=== PATIENT | male | born 1950 | race Caucasian/White ===

== ENCOUNTER 2018-10-20 12:35 | Emergency (ER) | payer MEDICARE, BC, SELFPAY ==
[2018-10-20 12:41] VITALS: BP 123/80; PULSE 69; RESP 18; TEMP 36.9; O2SAT 97
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
[2018-10-20 14:10] LABS: Abs Immature Grans 0.01 k/cumm (0.0-0.09); Absolute Basophil Count 0.01 k/cumm (0.0-0.2); Absolute Eosinophil Count 0.04 k/cumm (0.0-0.7); Absolute Lymphocyte Count 0.99 k/cumm (1.2-3.4); Absolute Neutrophil Count 5.66 k/cumm (1.2-6.7); Basophils % 0.1; Eosinophils % 0.6; HCT 44.5 % (40.0-50.0); HGB 15.2 g/dL (13.5-17.5); Immature Grans % 0.1; Lymphocytes % 13.9; Mean Corp. HGB Concentration 34.2 g/dL (32.0-36.0); Mean Corpuscular Hemoglobin 29.5 pg (27.0-33.0); Mean Corpuscular Volume 86.2 fL (80-95); Mean Platelet Volume 9.5 fL (8.0-11.0); Monocytes % 5.6; Neutrophils % 79.7; Platelet Count 166 x1000/uL (130-400); RBC 5.16 m/cumm (4.50-6.00); RBC Distribution Width 13.1 % (11.8-14.1); White Blood Cell Count 7.11 k/cumm (4.4-10.8)
[2018-10-20] MEDS: Normal Saline 500 ML IV (14:11)
[2018-10-20 14:30] LABS: ALT 28 U/L (12-78); AST 21 U/L (15-37); Albumin 4.1 g/dL (3.4-5.0); Alkaline Phosphatase 90 U/L (46-116); Anion Gap 9.2 mmol/L (3-11); BUN 14 mg/dL (7-18); Bilirubin, Total 0.9 mg/dL (0.2-1.0); CO2 26.8 mmol/L (21.0-32.0); CREATININE 0.88 mg/dL (0.70-1.30); Calcium 9.2 mg/dL (8.5-10.1); Chloride 104 mmol/L (98-107); Glucose 106 mg/dL (70-100); Magnesium 2.2 mg/dL (1.8-2.4); Potassium 4.1 mmol/L (3.5-5.1); Sodium 140 mmol/L (136-145); Total Protein 6.9 g/dL (6.4-8.2); Troponin I < 0.05 ng/mL (0.00-0.06)
[2018-10-20 15:05] VITALS: BP 138/70; PULSE 55; RESP 16; O2SAT 98
[2018-10-20 17:30] VITALS: BP 134/89; PULSE 53; RESP 16; TEMP 36.9; O2SAT 99
[2018-10-20] MEDS: Acetaminophen 325 MG TAB (17:30)
== END 2018-10-20 17:33 | disposition short-term general hospital (02) ==
PROVIDERS: Emergency Provider Physician Assistant; PCP Emergency Medicine
DX: R55 Syncope and collapse (principal); R93.0 Abnormal findings on diagnostic imaging of skull and head, not elsewhere classified; R93.7 Abnormal findings on diagnostic imaging of other parts of musculoskeletal system; S01.511A Laceration without foreign body of lip, initial encounter; S00.81XA Abrasion of other part of head, initial encounter; V17.0XXA Pedal cycle driver injured in collision with fixed or stationary object in nontraffic accident, initial encounter
CPT/HCPCS: 36415; 80053; 93005; 96360; 99285; 70450; 70486; 71046; 72125; 73564; 83735; 84484; 85025; 93010

== ENCOUNTER 2018-10-31 00:52 | Outpatient (CLI) | payer MEDICARE, BC, SELFPAY ==
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
== END 2018-10-31 01:12 ==
PROVIDERS: PCP Emergency Medicine; Visit Provider Emergency Medicine
DX: R55 Syncope and collapse (principal); Z82.49 Family history of ischemic heart disease and other diseases of the circulatory system
CPT/HCPCS: 93016; 93018; 93017

== ENCOUNTER 2018-11-03 01:59 | Outpatient (CLI) | payer MEDICARE, BC, SELFPAY ==
--- NOTE | 2018-11-06 11:39 | HOLTER_ITS ---
HOLTER MONITOR DATE OF DICTATION November 06, 2018 INDICATION Syncope. ANALYSIS TIME 48 HOURS. Baseline rhythm is sinus rhythm. Average heart rate 64 beats per minute. Minimum heart rate 47 beats per minute. Max heart rate 154 beats per minute. Isolated PVCs. Less than 1% of total beats. No nonsustained ventricular tachycardia. Rare PACs. No atrial fibrillation or SVT. No significant pauses or significant aide arrhythmias. No diary entries noted. Overall sinus rhythm with isolated ectopy. Topher Chan M.D. VIKY/rico T 11/06/2018
== END 2018-11-03 02:19 ==
PROVIDERS: PCP Emergency Medicine; Visit Provider Emergency Medicine
DX: R55 Syncope and collapse (principal); I49.3 Ventricular premature depolarization; I49.1 Atrial premature depolarization
CPT/HCPCS: 93225

== ENCOUNTER 2018-11-05 15:00 | Outpatient (CLI) | payer MEDICARE, BC, SELFPAY | END 2018-11-05 15:20 | PROVIDERS: PCP Emergency Medicine; Visit Provider Emergency Medicine | DX: R55 Syncope and collapse (principal); I49.3 Ventricular premature depolarization; I49.1 Atrial premature depolarization | CPT/HCPCS: 93226 ==

== ENCOUNTER 2018-11-06 10:40 | Outpatient (CLI) | payer MEDICARE, BC, SELFPAY | END 2018-11-06 11:00 | PROVIDERS: PCP Emergency Medicine; Referring Provider Emergency Medicine; Visit Provider Internal Medicine Cardiovascular Disease | DX: R55 Syncope and collapse (principal); I49.3 Ventricular premature depolarization; I49.1 Atrial premature depolarization | CPT/HCPCS: 93227 ==

== ENCOUNTER → 2018-11-10 09:49 | Outpatient (BNVA) | payer MEDICARE, BC, SELFPAY | PROVIDERS: PCP Emergency Medicine; Referring Provider Emergency Medicine; Visit Provider Surgery | DX: K40.90 Unilateral inguinal hernia, without obstruction or gangrene, not specified as recurrent (principal); I47.2 Ventricular tachycardia | CPT/HCPCS: 99202; 99213 ==

== ENCOUNTER 2018-11-11 11:13 | Outpatient (CLI) | payer MEDICARE, BC, SELFPAY ==
[2018-11-11 12:15] LABS: HCT 41.5 % (40.0-50.0); Mean Corp. HGB Concentration 33.7 g/dL (32.0-36.0); Mean Corpuscular Hemoglobin 28.7 pg (27.0-33.0); Mean Platelet Volume 9.9 fL (8.0-11.0); Platelet Count 168 x1000/uL (130-400); RBC 4.88 m/cumm (4.50-6.00); White Blood Cell Count 3.96 k/cumm (4.4-10.8)
[2018-11-11 13:37] LABS: Anion Gap 10.2 mmol/L (3-11); BUN 18 mg/dL (7-18); CO2 25.8 mmol/L (21.0-32.0); CREATININE 0.84 mg/dL (0.70-1.30); Chloride 104 mmol/L (98-107); Sodium 140 mmol/L (136-145)
== END 2018-11-11 11:33 ==
PROVIDERS: PCP Emergency Medicine; Visit Provider Internal Medicine Interventional Cardiology
DX: I47.2 Ventricular tachycardia (principal); R55 Syncope and collapse
CPT/HCPCS: 36415; 80051; 84520; 85027; 82565

== ENCOUNTER 2019-10-21 03:00 | Outpatient (CLI) | payer MEDICARE, BC, SELFPAY ==
[2019-10-21 08:55] LABS: Calculated LDL 47 mg/dL (<100); Cholesterol 143 mg/dL (<200); HDL Cholesterol 89 mg/dL (40-60); Triglyceride 39 mg/dL (<150)
[2019-10-22 09:07] LABS: PSA, Screening 0.8 ng/mL (0.0-6.5)
== END 2019-10-21 03:20 ==
PROVIDERS: PCP Emergency Medicine; Visit Provider Emergency Medicine
DX: N40.1 Benign prostatic hyperplasia with lower urinary tract symptoms (principal); R35.1 Nocturia; Z12.5 Encounter for screening for malignant neoplasm of prostate; E78.5 Hyperlipidemia, unspecified
CPT/HCPCS: 36415; 80061; 84153

== ENCOUNTER 2020-08-23 09:53 | Outpatient (CLI) | payer MEDICARE, BC, SELFPAY ==
--- NOTE | 2020-08-23 09:30 | DI.RAD_ITS ---
Exam(s) XR SHOULDER RT COMPLETE 2+V EXAM: XR SHOULDER RT COMPLETE 2+V CLINICAL HISTORY: RIGHT SHOULDER PAIN TECHNIQUE: COMPARISON: CR LEFT SHOULDER COMPLETE from 03/27/2013 FINDINGS: Three views were obtained. The humerus appears mildly subluxed superiorly raising the possibility of rotator cuff thinning or tear. There may be slight narrowing of the cartilaginous joint space the g lenohumeral joint. There are mild marginal osteophytes of the glenoid and humerus. There is elevation of the distal end of the clavicle consistent with acromioclavicular separation. IMPRESSION: RADIATION DOSE DELIVERED: Total DLP
== END 2020-08-23 09:54 | disposition home or self-care (01) ==
LOC: DIORS 09:53
PROVIDERS: PCP Emergency Medicine; Referring Provider Emergency Medicine; Visit Provider Student in an Organized Health Care Education/Training Program
DX: M75.101 Unspecified rotator cuff tear or rupture of right shoulder, not specified as traumatic (principal); M12.811 Other specific arthropathies, not elsewhere classified, right shoulder; M25.511 Pain in right shoulder
CPT/HCPCS: 99203; 99214; 73030

== ENCOUNTER → 2020-09-15 01:00 | Outpatient (CLI) | payer MEDICARE, BC, SELFPAY ==
--- NOTE | 2020-09-15 09:50 | DI.MRI_ITS ---
Exam(s) MR UPPER JOINT RT WO EXAM: MR UPPER JOINT RT WO CLINICAL HISTORY: rt shoulder pain, rotator cuff arthropathy,m75.101,m12.811. TECHNIQUE: Multiplanar multisequence MRI was performed. COMPARISON: CR LEFT SHOULDER COMPLETE from 03/27/2013 CR XR CHEST 2V PA LATERAL from 10/20/2018 CR XR SHOULDER RT COMPLETE 2+V from 08/23/2020 CR XR SHOULDER RT COMPLETE 2+V from 08/23/2020 FINDINGS: The examination is limited due to patient motion artifact. BONES: There is no fracture or contusion pattern. JOINTS: There is elevation of the right clavicle relative to the acromion. This is new compared to t he chest x-ray from 10/20/2018. This is consistent with right AC joint separation. There is superior subluxation of the humeral head relative to the glenoid. This is secondary to the patient's large ro tator cuff tear. Please see below for further details. Degenerative changes are seen at the acromio clavicular joint. TENDONS: Supraspinatus: There is a full-thickness tear of the anterior supraspinatus tendon with retraction to the level of the glenohumeral joint. There is tendinosis of the fibers of the supraspinatus tendon. Infraspinatus: The infraspinatus tendon is intact. There is tendinosis present. Subscapularis: There is mild tendinosis of the subscapularis tendon. Teres Minor: Unremarkable. Biceps and [place]: There appears to be medial subluxation of the biceps tendon. There is thickening of the biceps tendon consistent with tendinosis. MUSCLES: There is mild fatty atrophy of the supraspinatus muscle. The subscapularis, infraspinatus a nd teres minor muscles show normal signal and size. GLENOID LABRUM: There is a small focus of hyperintense signal on the T2 weighted images in the anteri or superior labrum which may represent a tear. SOFT TISSUES: There is mild edema seen around the acromioclavicular joint. There is no evidence of a soft tissue mass. LIGAMENTS: Please see the above discussion on joints. OTHER: There is fluid seen in the subacromial bursa consistent with the patient's supraspinatus tendo n tear. IMPRESSION: 1. Full-thickness supraspinatus tendon tear with retraction to the level of the glenohumeral joint. Mild fatty atrophy of the supraspinatus muscle. 2. Right AC joint separation. 3. Question of an anterior superior labral tear. 4. Tendinosis and medial subluxation of the biceps tendon. 5. Tendinosis of the infraspinatus and subscapularis tendons. 6. Examination limited by patient motion. DATA REPOSITORY:
== END ==
PROVIDERS: PCP Emergency Medicine; Visit Provider Student in an Organized Health Care Education/Training Program
DX: M25.511 Pain in right shoulder (principal); M75.101 Unspecified rotator cuff tear or rupture of right shoulder, not specified as traumatic; M12.811 Other specific arthropathies, not elsewhere classified, right shoulder; S43.101A Unspecified dislocation of right acromioclavicular joint, initial encounter; M75.81 Other shoulder lesions, right shoulder
CPT/HCPCS: 73221

== ENCOUNTER → 2020-09-28 11:21 | Outpatient (BNVA) | payer MEDICARE, BC, SELFPAY | PROVIDERS: PCP Emergency Medicine; Referring Provider Emergency Medicine; Visit Provider Student in an Organized Health Care Education/Training Program | DX: M75.101 Unspecified rotator cuff tear or rupture of right shoulder, not specified as traumatic (principal); M12.811 Other specific arthropathies, not elsewhere classified, right shoulder; S46.211D Strain of muscle, fascia and tendon of other parts of biceps, right arm, subsequent encounter; X58.XXXD Exposure to other specified factors, subsequent encounter | CPT/HCPCS: 99213; 99214 ==

== ENCOUNTER → 2021-04-03 10:22 | Outpatient (BNVA) | payer MEDICARE, BC, SELFPAY | PROVIDERS: PCP Emergency Medicine; Referring Provider Emergency Medicine; Visit Provider Surgery | DX: K40.90 Unilateral inguinal hernia, without obstruction or gangrene, not specified as recurrent (principal) | CPT/HCPCS: 99202; 99214 ==

== ENCOUNTER 2021-05-01 01:15 | Outpatient (CLI) | payer MEDICARE, SELFPAY ==
[2021-05-01 10:57] LABS: Source Nasal/Nares
[2021-05-01 14:39] LABS: COVID-19 PCR Negative (Negative)
== END 2021-05-01 01:16 | disposition home or self-care (01) ==
LOC: LBO 01:15
PROVIDERS: PCP Emergency Medicine; Visit Provider Surgery
DX: Z20.822 Contact with and (suspected) exposure to COVID-19 (principal)
CPT/HCPCS: 87635

== ENCOUNTER 2021-05-02 06:18 | Day surgery (SDC) | payer MEDICARE, SELFPAY ==
--- NOTE | 2021-05-01 22:06 | ROE_ITS ---
Date of service: 05/02/21 Time of Service: 09:10 Operative Note Operative Note DATE OF PROCEDURE: 05/02/21 PRE-OP DIAGNOSIS: LIH POST-OP DIAGNOSIS: same PROCEDURE: indirect SURGEON: Maryellen Winters ROLLER LEVELER OPERATOR: Fabiana Parkinson ANESTHESIA TYPE: Local By Surgeon, General LMA/ETT and Primary Nerve Block Refer to Anesthesia Record ESTIMATED BLOOD LOSS: 5 PATHOLOGY: none sent COMPLICATIONS: None Patient was transported to: same day Procedure Description: INDICATIONS: The pt is here today for surgery regarding symptomatic left inguinal hernia that has failed outpatient conservative medical management and he is here today for repair. Informed consent was obtained, explaining risks and benefits of the procedure including but not limited to bleeding, infection, pneumonia, blood clots, chronic pain, chronic numbness, damage to testicle resulting in removal, recurrence of hernia, reaction to Mesh necessitating removal, and other unforetold complications, and complications of anesthesia-which were addressed by the HUMAN SERVICES INSTRUCTOR. The patient is marked in preOp prior to the procedure DESCRIPTION OF PROCEDURE: The pt is then brought to the operative room suite. Anesthesia was administered per the Department of Anesthesia. A nerve block was performed by anesthesia under US guidance. The patient was prepped and draped in the usual sterile fashion using ChloraPrep scrub solution. Pause for the cause was done. He did receive preop IV antibiotics, and 30 mL of .25% Marcaine w/ epinephrine was used for local anesthetization. A #12 blade was used to make an incision over the external ring. Electrocautery used to provide hemostasis and dissect down to the fascia. The fascia was pretty much obliterated and there was nothing to open. The cord is elevated. The nerve was not identified. There is no cord lipomas. Electro-cautery is used to provide hemostasis. A Jenelle drain was placed around the cord to assist in mobilization. The cord was explored. There was a hernia sac on the cord. There is no direct hernia pushing through the floor. The hernia sac is dissected off the cord using a combination of blunt dissection and electrocautery. Electrocautery is used to provide hemostasis. There are no contents within the hernia sac. The hernia sac is than inverted and returned to the abdominal cavity. A medium size plug is than inserted into the defect through the internal ring, and over sewn to tighten up the ring with 2-0 vicryl. Please see RN notes from Lot number of the Bard mesh patch/plug. The cord structures are still able to freely move through the ring itself. The patch was then placed onto the floor, and using 2-0 Vicryl, sewn into the pubic tubercle and the shelving portions of the inguinal ligament, in the standard Lichenstein fashion. The tails of the mesh are brought around the cord, sewn together w/ 2-0 Vicryl, and tucked under the external oblique. The wound was copiously irrigated. There was no bleeding noted. The drain was removed. All structures are returned to normal anatomical position. The nerve is not sewn into the mesh, nor caught up in any sutures. The external oblique is re- approximated using 2-0 vicryl in a running fashion. Deep tissue was approximated with 3-0 Vicryl in a running fashion, and skin was approximated with 4-0 Monocryl in a running subcuticular fashion. Skin glue and sterile d ressings are applied. The patient tolerated the procedure without complications to recovery in stable condition. MARYELLEN WINTERS, DO
--- NOTE | 2021-05-01 22:08 | W.PM.DSUDISC ---
Discharge Plan Disposition Patient Disposition: HOME Condition: Good Discharge Details Reason For Visit: hernia repair Attending Provider: Maryellen Machado Primary Care Provider: Dlalin Haywood Home Meds and New Rx's Prescriptions: No Action sildenafil 100 mg tablet 100 mg PO DAILY PRNRF: 0 Discharge Instructions Activity:: see above Remove Dressings/Wound Care:: 24 hours Shower/Bathe:: 24 hours Diet:: As Tolerated Discharge Orders Discharge Orders: Discharge Order (Routine); Ordered 05/01/21 Ordered By: Maryellen Machado DS: Diagnosis Discharge Diagnosis (1) Left inguinal hernia: Status: Acute (2) Hyperlipidemia: Status: Acute (3) Right rotator cuff tear arthropathy: Status: Acute (4) History of total bilateral knee replacement (TKR): Status: Chronic (5) BPH associated with nocturia: Status: Chronic
[2021-05-02] VITALS (7 sets, daily range): BP systolic 103–135; BP diastolic 57–83; PULSE 46–64; RESP 13–16; TEMP 36.1–36.5; O2SAT 98; BMI 26.0
--- NOTE | 2021-05-02 06:25 | W.ANESPRE ---
General Info Date of Service Date Performed: 05/02/21 Height: 5 ft 10 in Weight: 82.327 kg Body Mass Index (BMI): 26.0 Surgical Procedure: Operation Date: 05/02/21 07:40 Proposed Procedures Side Surgeon p Herniorrhaphy Inguinal w/ Mesh Left Maryellen Machado DO Meds Allergies and Home Medications Allergies Allergy/AdvReac Type Severity Reaction Status Date / Time No Known Drug Allergies Allergy Verified 05/02/21 07:12 Home Medication Medication Instructions Recorded sildenafil 100 mg tablet 100 mg PO DAILY PRN 08/26/20 Current Visit Medications: Current Medications Generic Name Dose Route Start Last Admin Trade Name Freq PRN Reason Stop Dose Admin Acetaminophen 1,000 mg 05/02/21 06:00 Acetaminophen 500 Mg Tab PO 05/31/21 23:59 PREOP VALENTIN Gabapentin 600 mg 05/02/21 06:00 Gabapentin 300 Mg Cap PO 05/31/21 23:59 PREOP VALENTIN Ringer's Solution 1,000 mls @ 80 mls/hr 05/02/21 06:00 IV 05/31/21 23:59 INFUSION VALENITN Cefazolin Sodium/Dextrose 2 gm in 50 mls @ 100 mls/hr 05/02/21 06:00 Ancef Duplex IVPB 05/31/21 23:59 PREOP VALENTIN Ondansetron HCl 4 mg/ Sodium 52 mls @ 200 mls/hr 05/01/21 22:04 Chloride IVPB Q6H PRN PRN IV Miscellaneous Supplies 1 each 05/02/21 06:00 Iv Access IV 05/31/21 23:59 DIRECTED VALENTIN Morphine Sulfate 2 mg 05/01/21 22:04 Morphine 4 Mg/Ml Syr IVP Q1H PRN PRN Sodium Chloride 0 ml 05/02/21 06:00 Normal Saline Flush 10 Ml Syr IV 05/31/21 23:59 PRN PRN Sodium Chloride 0 ml 05/02/21 06:00 Normal Saline 10 Ml Vial IJ 05/31/21 23:59 DIRECTED PRN Sterile Water 0 ml 05/02/21 06:00 Water,Injection,Sterile 10 Ml Vial IJ 05/31/21 23:59 DIRECTED PRN Tramadol HCl 50 mg 05/01/21 22:04 Tramadol 50 Mg Tab PO Q6H PRN PRN Pain PFSH Active Problems Active Problems: Problem Status Onset Code Rotator cuff tear, right M75.101 Traumatic rupture of right proximal biceps tendon S46.211A Right rotator cuff tear arthropathy M75.101, M12.811 Hyperlipidemia E78.5 Encounter for annual physical exam Z00.00 Left inguinal hernia K40.90 Syncope and collapse R55 History of arthroscopy of knee Z98.890 Concussion S06.0X9A History of total bilateral knee replacement (TKR) Z96.653 H/O varicose veins Z86.79 BPH associated with nocturia 06/01/14 N40.1, R35.1 Dermatitis L30.9 Hearing loss H91.90 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.11 Rotator cuff dysfunction 06/01/14 M67.919 Trigger finger, left ring finger 07/23/16 M65.342 Septic arthritis of knee, right M00.9 H/O surgical procedure Z98.89 Medical History Medical History Concussion Osteoarthritis Surgical History Surgical History Arthroplasty of knee 11/23/13 right Colonoscopy - MAC (08/21/16) 2004;neg H/O shoulder surgery History of appendectomy History of knee surgery Tobacco Smoking/Tobacco Use Status: Never Passive smoking exposure: Yes Second hand exposure: Yes Alcohol Alcohol Intake: current Alcohol intake frequency: a few times a week Alcohol type: beer Substance Use Substance use: Never Substance use type: does not use Vital Signs and Lab Results Vital Signs Most Recent Vital Signs in EMR: Temp Pulse Resp BP Pulse Ox 36.3 C L 57 L 16 132/83 98 05/02/21 06:21 05/02/21 06:21 05/02/21 06:21 05/02/21 06:21 05/02/21 06:21 Lab Results Blood Type / Crossmatch: No Data to Display Complete Blood Count: No Data to Display Complete Metabolic Panel: No Data to Display Liver Function Panel: No Data to Display Coagulation Panel: No Data to Display Cardiac Panel: No Data to Display Arterial Blood Gas: No Data to Display Venous Blood Gas: No Data to Display Pancreas Panel: No Data to Display Thyroid Panel: No Data to Display Infectious Disease: Coronavirus (COVID-19)(PCR) Negative (Negative) 05/01/21 08:24 05/01/21 Coronavirus 2019 Source Nasal/Nares 05/01/21 08:24 05/01/21 Blood Cultures: No Data to Display Toxicology Panel: No Data to Display Imaging and Studies Imaging and Studies Study information below may be from another EMR and interpreted by another provider. Please see original notes in EMR for more complete details. EKG Summary: 11/2018: sinus aide, minimal voltage criteria for LVH. Stress Test Summary: 2019: borderline study. treadmill score 8 - low risk. target HR was achieved. 14 mets. did have non-sustained VT in recovery. Echocardiogram Summary: 2019: LVEF 67%, mild-mod MR. Cardiac Catheterization Summary: 20 % mid and 20% distal LAD lesion, no intervention. MRI Summary: Cardiac 2019: normal LV fxn, possible myocarditis. Other Study Summary:: Holter 2019: sinus rhythm. no a fib/svt Zio Patch 2019: unremarkable. Anesthesia Assessment and Plan Anesthesia History Personal History: No History of Anesthesia Complications Family History: No Family History of Anesthesia Complications Exercise Tolerance Exercise Tolerance: Metabolic Equivalents<4 Cardiac & Pulmonary Exam Cardiac Exam: Normal S1/S2 Heart Sounds Pulmonary Exam: Clear Bilateral Breath Sounds Implantable Cardiac Device Does patient have a Pacemaker or an ICD?: No Airway Exam Known Difficult Airway: No Mallampati Class: 2 Mouth Opening: Normal (> 3cm) Thyromental Distance: Greater than 3 cm Neck Range of Motion: Full ROM Neck Circumference: Normal Teeth Condition: Normal Dentition ASA Classification ASA Score: ASA 2 Emergency Case?: No NPO Status NPO Status: NPO Clears >2 hours, Solids >8 hours Anesthesia Plan Resuscitation Status: Full Code Anesthesia Technique: General Anesthesia Airway Planned: LMA Pain Management: Surgeon and patient request nerve block Monitors Used: Standard Monitors Preoperative Comments:: 71 yo male for inguinal hernia repair. Sig PMHx: syncope (extensive workup, EP recommendations: no changes, f/u in 1 yr, if doing well can cancel), never smoker, occ EtOH.
[2021-05-02] MEDS: Lactated Ringers 1,000 ML 80 ML IV (06:37)
[2021-05-02] MEDS: Gabapentin 300 MG CAP 600 MG PO (06:37)
[2021-05-02] MEDS: Acetaminophen 500 MG TAB 1000 MG PO (06:37)
[2021-05-02] MEDS: ceFAZolin 2 GM/50 ML BAG IVPB (07:37)
--- NOTE | 2021-05-02 07:54 | W.ANESNERVE ---
Nerve Block Single Injection Procedure Date and Time Date Performed: 05/02/21 Procedure Start: 07:44 Location Where Procedure Performed Procedure Location: Operating Room Procedure Stop: 07:49 Reason Performed: Postoperative Analgesia Requesting Provider: Maryellen Machado Timeout Performed Timeout Performed: Yes Monitoring Used ECG, Blood Pressure, SpO2 and ETCO2 Sterility Sterility: Hand Hygiene, Surgical Cap, Surgical Mask, Sterile Gloves and Chlorhexidine Sedation Given During Procedure Sedation Given (Indicate Dose Given): No Sedation given Patient Mental Status Patient Mental Status: Performed under general anesthesia Nerve Block 1st Nerve Block: Laterality: Left Block Type: TAP Unilateral Needle / Catheter Used: 100mm SonoPlex II Local Anesthetic Bolus (Indicate Dose Given): Bupivacaine 0.375% Dose:: 20 mL and Exparel Dose:: 10 mL Additives (Indicate Dose Given): None Ultrasound: Sterile probe cover and gel used Ultrasound Image Saved?: Yes Nerve Stimulator: Not Used Paresthesia: None Procedure Tolerated: No Complications Procedure Outcome: Successful Performed By: Sebas Don
[2021-05-02] MEDS: Bupivacaine 0.25% Pres-Free 30 ML VIAL (08:30)
[2021-05-02] MEDS: Bupivacaine LIPOSOME/PF 133 MG/10 ML VIAL IJ (08:52)
--- NOTE | 2021-05-02 09:51 | W.ANESPOSTOP ---
Postoperative Evaluation Date, Time and Location Date Performed: 05/02/21 Time Performed: 09:51 Patient Location: Day Surgery Unit Vital Signs Most Recent Imported Vital Signs: Most Recent Vital Signs Temp Pulse Resp BP Pulse Ox 36.5 C 58 L 16 135/74 98 05/02/21 09:30 05/02/21 09:30 05/02/21 09:30 05/02/21 09:30 05/02/21 09:30 Pain Score Most Recent Pain Score: Most Recent Pain Score Pain Level 0 05/02/21 09:30 Assessment Mental Status: Awake (Alert & Oriented to Patient Baseline) Airway and Respiratory Function: Patent airway with normal (patient baseline) respiratory exam Cardiovascular Function: Hemodynamically Stable Hydration Status: Adequately Hydrated Nausea & Vomiting: No Nausea or Vomiting Pain: Pt. Denies Any Pain Peripheral Nerve Block: Regional nerve block not resolved at time of post operative discharge
== END 2021-05-02 11:11 | disposition home or self-care (01) ==
LOC: SUR 06:18
PROVIDERS: PCP Emergency Medicine; Visit Provider Surgery
PROC: (CPT 49505; principal; 2021-05-02 07:30)
DX: K40.90 Unilateral inguinal hernia, without obstruction or gangrene, not specified as recurrent (principal); E78.5 Hyperlipidemia, unspecified; N40.1 Benign prostatic hyperplasia with lower urinary tract symptoms; R35.1 Nocturia
CPT/HCPCS: 49505; 76942; C1781; J0690; J1100; J1885; J2001; J2405; J2704

== ENCOUNTER → 2021-05-18 08:44 | Outpatient (BNVA) | payer MEDICARE, SELFPAY | PROVIDERS: PCP Family Medicine; Referring Provider Emergency Medicine; Visit Provider Surgery | DX: Z48.815 Encounter for surgical aftercare following surgery on the digestive system (principal) ==

== ENCOUNTER → 2021-12-26 12:20 | Outpatient (BNVA) | payer MEDICARE, SELFPAY | PROVIDERS: PCP Family Medicine; Referring Provider Family Medicine; Visit Provider Nurse Practitioner Adult Health | DX: G56.22 Lesion of ulnar nerve, left upper limb (principal); G56.03 Carpal tunnel syndrome, bilateral upper limbs | CPT/HCPCS: 95911; 99203; 99215 ==

== ENCOUNTER → 2022-02-22 09:35 | Outpatient (BNVA) | payer MEDICARE, SELFPAY | PROVIDERS: PCP Family Medicine; Referring Provider Family Medicine; Visit Provider Student in an Organized Health Care Education/Training Program | DX: G56.03 Carpal tunnel syndrome, bilateral upper limbs (principal) | CPT/HCPCS: 99213 ==

== ENCOUNTER → 2022-03-15 11:14 | Outpatient (BNVA) | payer MEDICARE, SELFPAY | PROVIDERS: PCP Family Medicine; Referring Provider Family Medicine; Visit Provider Physical Therapy Assistant | DX: L72.9 Follicular cyst of the skin and subcutaneous tissue, unspecified (principal) | CPT/HCPCS: 99213 ==

== ENCOUNTER 2022-03-21 06:10 | Day surgery (SDC) | payer MEDICARE, SELFPAY ==
[2022-03-21 06:29] VITALS: BP 144/72; PULSE 51; RESP 16; TEMP 36.3; O2SAT 96
[2022-03-21] MEDS: Lactated Ringers 1,000 ML 80 ML IV (06:58)
--- NOTE | 2022-03-21 06:59 | W.ANESPRE ---
General Info Date of Service Date Performed: 03/21/22 Height: 5 ft 11 in Weight: 83.3 kg Body Mass Index (BMI): 25.6 Surgical Procedure: Operation Date: 03/21/22 07:40 Proposed Procedure Side Surgeon p Wrist ECTR Left Anson Suazo MD Meds Allergies and Home Medications Allergies Allergy/AdvReac Type Severity Reaction Status Date / Time No Known Drug Allergies Allergy Verified 03/21/22 06:34 Home Medication Medication Instructions Recorded sildenafil 100 mg tablet 100 mg PO DAILY PRN sexual 09/12/21 activity #30 tabs acetaminophen 500 mg tablet 500 mg PO Q6H PRN PRN pain #60 tabs 03/21/22 hydrocodone 5 mg-acetaminophen 325 1 tab PO Q6H PRN pain #4 tabs 03/21/22 mg tablet ibuprofen 600 mg tablet 600 mg PO TID PRN pain #90 tabs 03/21/22 Current Visit Medications: Current Medications Generic Name Dose Route Start Last Admin Trade Name Freq PRN Reason Stop Dose Admin Ringer's Solution 1,000 mls @ 80 mls/hr 03/21/22 06:00 IV 04/19/22 23:59 INFUSION VALENTIN Cefazolin Sodium/Dextrose 2 gm in 50 mls @ 100 mls/hr 03/21/22 06:00 Ancef Duplex IVPB 03/21/22 16:00 PREOP VALENTIN IV Miscellaneous Supplies 1 each 03/21/22 06:00 Iv Access IV 04/19/22 23:59 DIRECTED VALENTIN Sodium Chloride 0 ml 03/21/22 06:00 Normal Saline Flush 10 Ml Syr IV 04/19/22 23:59 PRN PRN Sodium Chloride 0 ml 03/21/22 06:00 Normal Saline 10 Ml Vial IJ 04/19/22 23:59 DIRECTED PRN Sterile Water 0 ml 03/21/22 06:00 Water,Injection,Sterile 10 Ml Vial IJ 04/19/22 23:59 DIRECTED PRN PFSH Active Problems Active Problems: Problem Status Onset Code Septic arthritis of knee, right M00.9 H/O surgical procedure Z98.89 Trigger finger, left ring finger 07/23/16 M65.342 Rotator cuff dysfunction 06/01/14 M67.919 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.11 Hearing loss H91.90 Dermatitis L30.9 BPH associated with nocturia 06/01/14 N40.1, R35.1 H/O varicose veins Z86.79 History of total bilateral knee replacement (TKR) Z96.653 Concussion S06.0X9A History of arthroscopy of knee Z98.890 Syncope and collapse R55 Left inguinal hernia K40.90 Encounter for annual physical exam Z00.00 Hyperlipidemia E78.5 Right rotator cuff tear arthropathy M75.101, M12.811 Traumatic rupture of right proximal biceps tendon S46.211A Rotator cuff tear, right M75.101 Left carpal tunnel syndrome G56.02 BPH (benign prostatic hyperplasia) N40.0 Actinic keratoses L57.0 Bilateral carpal tunnel syndrome G56.03 Medical History Medical History Concussion Osteoarthritis Surgical History Surgical History Arthroplasty of knee 11/23/13 right, left Colonoscopy - MAC (08/21/16) 2004;neg H/O shoulder surgery History of appendectomy History of knee surgery History of left inguinal hernia repair (~05/02/21) Tobacco Smoking/Tobacco Use Status: Never Passive smoking exposure: Yes Second hand exposure: Yes Alcohol Alcohol Intake: current Alcohol intake frequency: a few times a week Alcohol type: beer Substance Use Substance use: Never Substance use type: does not use Vital Signs and Lab Results Vital Signs Most Recent Vital Signs in EMR: Most Recent Vital Signs Temp Pulse Resp BP Pulse Ox 36.3 C L 51 L 16 144/72 H 96 03/21/22 06:29 03/21/22 06:29 03/21/22 06:29 03/21/22 06:29 03/21/22 06:29 Lab Results Blood Type / Crossmatch: No Data to Display Complete Blood Count: No Data to Display Complete Metabolic Panel: No Data to Display Liver Function Panel: No Data to Display Coagulation Panel: No Data to Display Cardiac Panel: No Data to Display Arterial Blood Gas: No Data to Display Venous Blood Gas: No Data to Display Pancreas Panel: No Data to Display Thyroid Panel: No Data to Display Infectious Disease: No Data to Display Blood Cultures: No Data to Display Toxicology Panel: No Data to Display Imaging and Studies Imaging and Studies Study information below may be from another EMR and interpreted by another provider. Please see original notes in EMR for more complete details. EKG Summary: 11/2018: sinus aide, minimal voltage criteria for LVH. Stress Test Summary: 2019: borderline study. treadmill score 8 - low risk. target HR was achieved. 14 mets. did have non-sustained VT in recovery. Echocardiogram Summary: 2019: LVEF 67%, mild-mod MR. Cardiac Catheterization Summary: 20 % mid and 20% distal LAD lesion, no intervention. MRI Summary: Cardiac 2019: normal LV fxn, possible myocarditis. Other Study Summary:: Holter 2019: sinus rhythm. no a fib/svt Zio Patch 2019: unremarkable. Anesthesia Assessment and Plan Anesthesia History Personal History: No History of Anesthesia Complications Family History: No Family History of Anesthesia Complications Exercise Tolerance Exercise Tolerance: Metabolic Equivalents<4 Pertinent Negatives Pertinent Negatives: No Symptoms of GERD Cardiac & Pulmonary Exam Cardiac Exam: Normal S1/S2 Heart Sounds Pulmonary Exam: Clear Bilateral Breath Sounds Implantable Cardiac Device Does patient have a Pacemaker or an ICD?: No Airway Exam Known Difficult Airway: No Mallampati Class: 2 Mouth Opening: Normal (> 3cm) Thyromental Distance: Greater than 3 cm Neck Range of Motion: Full ROM Neck Circumference: Normal Teeth Condition: Normal Dentition ASA Classification ASA Score: ASA 2 Emergency Case?: No NPO Status NPO Status: NPO Clears >2 hours, Solids >8 hours Anesthesia Plan Resuscitation Status: Full Code Anesthesia Technique: General Anesthesia Airway Planned: Natural Airway Monitors Used: Standard Monitors Preoperative Comments:: Sig PMHx: syncope (extensive workup, EP recommendations: no changes, f/u in 1 yr, if doing well can cancel), never smoker, occ EtOH.
--- NOTE | 2022-03-21 07:15 | W.PREOPHP ---
Assessment and Plan Assessment and plan (1) Bilateral carpal tunnel syndrome: Status: Acute Assessment and plan: Brennon is a 72-year-old who has bilateral carpal tunnel syndrome. He is here today for the left side to be followed by the right side and another 1 week. I reviewed carpal tunnel surgery with him once again. I discussed the technical details of carpal tunnel release and that I perform an endoscopic release, but would make a larger, open, incision if necessary for visualization. I discussed the risks of the procedure to include, but not limited to, bleeding, infection, palmar pain, stiffness, damage to nerves, damage to vessels, damage to tendons, weakness, recurrence, and incomplete release. Given these risks, Brennon desires to proceed. History of Present Illness History of Present Illness Chief Complaint: Bilateral carpal tunnel syndrome Narrative: Brennon is a 72-year-old who has bilateral carpal tunnel syndrome, left worse than right. Please see the previous office note for complete detailed history. He is here today for the left carpal tunnel release to be followed by the right side in 1 week. He reports numbness over the median nerve distribution. He has failed other nonoperative options. He denies any new changes. He denies any health changes. He denies any sick contacts. He denies fevers or chills, cough, shortness of breath. Review of Systems All systems reviewed & are unremarkable except as noted in HPI and below PFSH All Active Problems Septic arthritis of knee, right (Chronic) H/O surgical procedure (Chronic) a. arthroscopic irrigation and debridement right knee 12/19/2013 b. arthroscopic partial medial meniscectomy 11/23/2013 Trigger finger, left ring finger (Chronic 07/23/16) Rotator cuff dysfunction (Chronic 06/01/14) bilateral. surgery left. 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 Neg holter Left inguinal hernia (Acute) Encounter for annual physical exam (Acute) Hyperlipidemia (Acute) Right rotator cuff tear arthropathy (Acute) Traumatic rupture of right proximal biceps tendon (Acute) Rotator cuff tear, right (Acute) Left carpal tunnel syndrome (Acute) BPH (benign prostatic hyperplasia) (Chronic) Actinic keratoses (Acute) Bilateral carpal tunnel syndrome (Acute) Medical History Concussion Osteoarthritis Surgical History Arthroplasty of knee 11/23/13 right, left Colonoscopy - MAC (08/21/16) 2004;neg H/O shoulder surgery History of appendectomy History of knee surgery History of left inguinal hernia repair (~05/02/21) Family History Mother , age 89 No problems noted. Father , age 79 Heart disease Myocardial infarction Sister No problems noted. Sister No problems noted. Brother Heart disease Brother Heart disease NEW VALVE Hyperlipidemia Maternal Grandfather No problems noted. Paternal Grandfather No problems noted. Maternal Grandmother No problems noted. Paternal Grandmother No problems noted. Son No problems noted. Daughter No problems noted. Social History Smoking/Tobacco Use Status: Never Second Hand Exposure: Yes Smoking risk assessment performed?: Yes Alcohol Intake: current Alcohol Intake frequency: a few times a week Alcohol type: beer Drug use: Never Substance use type: does not use Caregiver/Support person: No Household members: spouse Housing: house Communication Needs: None Pets and animals: No Sexually active: Yes Do you think of yourself as: straight/heterosexual Current gender identity: male What is your relationship status?: How often do you talk on the phone with friends or family?: once per week How often do you get together with friends or relatives?: three or more times per week How often do you attend sikh or congregational services?: decline to answer Do you belong to any clubs or organized social groups?: no Panel score (0-1 are the most socially isolated patients): 2 What type of physical activity do you participate in: bicycling and other Details: Skiing, XIP, paddling Duration: 60-90 minutes/day Frequency: 3-4 times per week Elyssa/Pentecostal: None Special elyssa needs: No Seatbelt use: always Helmet use: Yes Helmet use: always Drive intox or ride w/intox hire car driver: No Do you feel safe at home: Yes Do you feel safe in your relationship?: Yes Meds Allergies and Home Medications Allergies Allergy/AdvReac Type Severity Reaction Status Date / Time No Known Drug Allergies Allergy Verified 03/21/22 06:34 Home Medications Medication Instructions Recorded Confirmed Type sildenafil 100 mg tablet 100 mg PO DAILY PRN sexual 09/12/21 03/21/22 Rx activity #30 tabs Exam Const General: cooperative, healthy appearing, comfortable and no acute distress Resp Auscultation: clear to auscultation bilaterally Cardio Rate: regular rate Rhythm: regular rhythm Results Last Vital Signs Temp 36.3 C L 03/21/22 06:29 Pulse 51 L 03/21/22 06:29 Resp 16 03/21/22 06:29 BP 144/72 H 03/21/22 06:29 Pulse Ox 96 03/21/22 06:29
--- NOTE | 2022-03-21 07:19 | PDOC.DSDIS_ITS ---
Date of service: 03/21/22 Time of Service: 07:19 Discharge Plan Disposition Patient Disposition: HOME Condition: Good Condition: Good Discharge Details Attending Provider: Anson Suazo Primary Care Provider: Rosa Elena Holly Home Meds and New Rx's Prescriptions: New acetaminophen 500 mg tablet 500 mg PO Q6H PRN PRN (Reason: pain) Qty: 60 3RF hydrocodone-acetaminophen 5-325 mg tablet 1 tab PO Q6H PRN (Reason: pain) Qty: 4 0RF ibuprofen 600 mg tablet 600 mg PO TID PRN (Reason: pain) Qty: 90 3RF Continued sildenafil 100 mg tablet 100 mg PO DAILY PRN (Reason: sexual activity) Qty: 30 4RF Rx Instructions: administer 30 minutes to 4 hours before activity Discharge Instructions Stand Alone Forms: Gabriele Lux Tunnel Release Referrals: Anson Suazo MD [ [facility] STAFF PHYSICIAN] - Activity:: Elevate Remove Dressings/Wound Care:: 48 hours Shower/Bathe:: 48 hours Activity:: Activity as Tolerated Equipment/Supplies:: No Equipment Needed Diet:: As Tolerated DS: Diagnosis Discharge Diagnosis (1) Bilateral carpal tunnel syndrome: Status: Acute
[2022-03-21] MEDS: ceFAZolin 2 GM/50 ML BAG IVPB (07:23)
[2022-03-21 07:30] VITALS: BMI 25.6
[2022-03-21] MEDS: Lidocaine 1% Pres-Free W/EPI 1/200,000 10 ML VIAL (07:31)
[2022-03-21 07:54] VITALS: BP 108/59; PULSE 55; RESP 16; TEMP 35.7; O2SAT 97
--- NOTE | 2022-03-21 07:56 | W.PM.OP ---
Date of service: 03/21/22 Time of Service: 07:45 Operative Note Operative Note DATE OF PROCEDURE: 03/21/22 PRE-OP DIAGNOSIS: Left Carpal Tunnel Syndrome POST-OP DIAGNOSIS: same PROCEDURE: Left Endoscopic Carpal Tunnel Release SURGEON: Anson Suazo ANESTHESIA TYPE: General:No Airway Refer to Anesthesia Record ESTIMATED BLOOD LOSS: 0 PATHOLOGY: none sent TOURNIQUET TIME: 8 COMPLICATIONS: None Patient was transported to: same day Patient's condition: stable Indications: I have seen Brennon in clinic for symptoms of carpal tunnel syndrome. The numbness, tingling, and pain limited function. Clinical exam findings with nerve conduction tests confirmed the diagnosis of carpal tunnel syndrome. Nonoperative measures such as bracing, time, activity modifications had been tried but disability and pain persisted. I discussed carpal tunnel release with the patient. I reviewed the risks of the procedure to include, but not limited to, bleeding, infection, pain, stiffness, incomplete release, damage to nerves or vessels, persistent numbness, recurrence. Despite these risks, the patient elected to proceed. Findings: There was tightened carpal tunnel. There was significant synovitis and abundant tissue within the carpal tunnel. This was dilated and released successfully with the endoscopic with increased space within the tunnel. The antebrachial fascia was released proximally freeing the median nerve at the wrist. Procedure Description: Brennon was greeted in the preoperative holding area where the correct side was identified and marked. The consent was reviewed with the patient and signed. The history and physical was updated. All questions were answered. He was taken back to the operating room. The patient was placed into the supine position on the operating room table with the left arm on an arm board. A nonsterile tourniquet was placed high onto the arm. All bony prominences were well padded. Prophylactic antibiotics in the form of Cefazolin were administered. The left arm was then prepped with Chloraprep and draped in a standard fashion with stockinette and extremity drape. A timeout to confirm correct identity, side and site, procedure, allergies, anesthesia, and medical concerns was performed. The surgical site was marked in the volar wrist creases in line with the radial border of the fourth ray. This area was anesthetized with approximately 6cc of 1% Lidocaine. The limb was then exsanguinated with an Esmarch. The skin was incised with a 15 blade, approximately 1cm. The skin only was cut and the deeper tissue was dissected bluntly with a tenotomy scissor, avoiding passing nerve and venous structures. The fascia was penetrated and opened bluntly. A two-prong skin hook was placed under this proximal fascial edge. A series of hamate finders were used to identify and dilate the carpal tunnel. Synovial elevator was used to free synovial attachments to the underside of the transverse carpal ligament. My thumb was kept in the palm to kale the distal extent of the carpal tunnel and correctly position the hand. The Microaire endoscope was inserted without difficulty and without resistance. There was notable synovitis and abundant tissue within the carpal tunnel which required multiple passes of the elevator. There was also a tendency to pass within Guyon's canal, but I used the hamate as a reference for appropriate positioning. Then, excellent visualization showed horizontally running fibers of the transverse carpal ligament (TCL). The distal extent of the TCL was visualized and the end of the scope palpated with the thumb. The blade was elevated and withdrawn from distal to proximal. The TCL was split into two flaps. The endoscope was reinserted to confirm complete release and any remnant ligament was incised. The scope was withdrawn and the proximal aspect of the carpal tunnel was grossly inspected and appeared release with the median nerve visible. The antebrachial fascia at the level of the wrist was then freed from the overlying skin and then the underlying median nerve with blunt dissection. This was transected longitudinally for about 3cm proximal to the wrist incision. The wound was then irrigated with easy flow of irrigant distally and proximally. The incision was closed with a single 4-0 Nylon suture. The wound was dressed with Xeroform, Gauze, Kerlix and Tj. The tourniquet was deflated with the initial dressing and held with some pressure. Blood flow returned easily to all digits with capillary refill less than 2 seconds. The patient tolerated the procedure well and was returned to the Same Day Surgery area in a stable condition suffering no known complication.
[2022-03-21 08:29] VITALS: PULSE 54; RESP 16; TEMP 36.3; O2SAT 97
--- NOTE | 2022-03-21 08:40 | W.ANESPOSTOP ---
Postoperative Evaluation Date, Time and Location Date Performed: 03/21/22 Time Performed: 08:40 Patient Location: Day Surgery Unit Vital Signs Most Recent Imported Vital Signs: Most Recent Vital Signs Temp Pulse Resp BP Pulse Ox 36.3 C L 54 L 16 108/59 L 97 03/21/22 08:29 03/21/22 08:29 03/21/22 08:29 03/21/22 07:54 03/21/22 08:29 Pain Score Most Recent Pain Score: Most Recent Pain Score Pain Level 0 03/21/22 08:29 Assessment Mental Status: Awake (Alert & Oriented to Patient Baseline) Airway and Respiratory Function: Patent airway with normal (patient baseline) respiratory exam Cardiovascular Function: Hemodynamically Stable Hydration Status: Adequately Hydrated Nausea & Vomiting: No Nausea or Vomiting Pain: Pt. Denies Any Pain Peripheral Nerve Block: Patient did not receive a nerve block
== END 2022-03-21 08:44 | disposition home or self-care (01) ==
PROVIDERS: PCP Family Medicine; Visit Provider Student in an Organized Health Care Education/Training Program
PROC: 01N54ZZ Release Median Nerve, Percutaneous Endoscopic Approach (ICD-10-PCS; CPT 29848; principal; 2022-03-21 07:30)
DX: G56.03 Carpal tunnel syndrome, bilateral upper limbs (principal)
CPT/HCPCS: 29848; J0690; J1100; J2405

== ENCOUNTER 2022-03-28 06:05 | Day surgery (SDC) | payer MEDICARE, SELFPAY ==
[2022-03-28 06:31] VITALS: BP 143/96; PULSE 54; RESP 14; TEMP 36.5; O2SAT 97
--- NOTE | 2022-03-28 07:07 | ANES.PREOP_ITS ---
General Info Date of Service Date Performed: 03/28/22 Height: 5 ft 11 in Weight: 82.6 kg Body Mass Index (BMI): 25.4 Surgical Procedure: Operation Date: 03/28/22 07:40 Proposed Procedure Side Surgeon p Wrist ECTR Right Anson Suazo MD Actual Procedure Side Surgeon p Wrist ECTR Right Anson Suazo MD Meds Allergies and Home Medications Allergies Allergy/AdvReac Type Severity Reaction Status Date / Time No Known Drug Allergies Allergy Verified 03/28/22 06:25 Home Medication Medication Instructions Recorded sildenafil 100 mg tablet 100 mg PO DAILY PRN sexual 09/12/21 activity #30 tabs acetaminophen 500 mg tablet 500 mg PO Q6H PRN PRN pain #60 tabs 03/21/22 hydrocodone 5 mg-acetaminophen 325 1 tab PO Q6H PRN pain #4 tabs 03/21/22 mg tablet ibuprofen 600 mg tablet 600 mg PO TID PRN pain #90 tabs 03/21/22 Current Visit Medications: Current Medications Generic Name Dose Route Start Last Admin Trade Name Freq PRN Reason Stop Dose Admin Ringer's Solution 1,000 mls @ 80 mls/hr 03/28/22 06:00 IV 04/26/22 23:59 INFUSION VALENTIN Cefazolin Sodium/Dextrose 2 gm in 50 mls @ 100 mls/hr 03/28/22 06:00 Ancef Duplex IVPB 04/26/22 23:59 PREOP VALENTIN IV Miscellaneous Supplies 1 each 03/28/22 06:00 Iv Access IV 04/26/22 23:59 DIRECTED VALENTIN Sodium Chloride 0 ml 03/28/22 06:00 Normal Saline Flush 10 Ml Syr IV 04/26/22 23:59 PRN PRN Sodium Chloride 0 ml 03/28/22 06:00 Normal Saline 10 Ml Vial IJ 04/26/22 23:59 DIRECTED PRN Sterile Water 0 ml 03/28/22 06:00 Water,Injection,Sterile 10 Ml Vial IJ 04/26/22 23:59 DIRECTED PRN PFSH Active Problems Active Problems: Problem Status Onset Code Septic arthritis of knee, right M00.9 H/O surgical procedure Z98.89 Trigger finger, left ring finger 07/23/16 M65.342 Rotator cuff dysfunction 06/01/14 M67.919 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.11 Hearing loss H91.90 Dermatitis L30.9 BPH associated with nocturia 06/01/14 N40.1, R35.1 H/O varicose veins Z86.79 History of total bilateral knee replacement (TKR) Z96.653 Concussion S06.0X9A History of arthroscopy of knee Z98.890 Syncope and collapse R55 Left inguinal hernia K40.90 Encounter for annual physical exam Z00.00 Hyperlipidemia E78.5 Right rotator cuff tear arthropathy M75.101, M12.811 Traumatic rupture of right proximal biceps tendon S46.211A Rotator cuff tear, right M75.101 Left carpal tunnel syndrome G56.02 BPH (benign prostatic hyperplasia) N40.0 Actinic keratoses L57.0 Bilateral carpal tunnel syndrome G56.03 Medical History Medical History Concussion Osteoarthritis Surgical History Surgical History Arthroplasty of knee 11/23/13 right, left Colonoscopy - MAC (08/21/16) 2004;neg H/O shoulder surgery History of appendectomy History of carpal tunnel release History of knee surgery History of left inguinal hernia repair (~05/02/21) Tobacco Smoking/Tobacco Use Status: Never Passive smoking exposure: Yes Second hand exposure: Yes Alcohol Alcohol Intake: current Alcohol intake frequency: a few times a week Alcohol type: beer Substance Use Substance use: Never Substance use type: does not use Details: alcohol: t-7 Vital Signs and Lab Results Vital Signs Most Recent Vital Signs in EMR: Most Recent Vital Signs Temp Pulse Resp BP Pulse Ox 36.5 C 54 L 14 143/96 H 97 03/28/22 06:31 03/28/22 06:31 03/28/22 06:31 03/28/22 06:31 03/28/22 06:31 Lab Results Blood Type / Crossmatch: No Data to Display Complete Blood Count: No Data to Display Complete Metabolic Panel: No Data to Display Liver Function Panel: No Data to Display Coagulation Panel: No Data to Display Cardiac Panel: No Data to Display Arterial Blood Gas: No Data to Display Venous Blood Gas: No Data to Display Pancreas Panel: No Data to Display Thyroid Panel: No Data to Display Infectious Disease: No Data to Display Blood Cultures: No Data to Display Toxicology Panel: No Data to Display Imaging and Studies Imaging and Studies Study information below may be from another EMR and interpreted by another provider. Please see original notes in EMR for more complete details. EKG Summary: 11/2018: sinus aide, minimal voltage criteria for LVH. Stress Test Summary: 2019: borderline study. treadmill score 8 - low risk. target HR was achieved. 14 mets. did have non-sustained VT in recovery. Echocardiogram Summary: 2019: LVEF 67%, mild-mod MR. Cardiac Catheterization Summary: 20 % mid and 20% distal LAD lesion, no interve ntion. MRI Summary: Cardiac 2019: normal LV fxn, possible myocarditis. Other Study Summary:: Holter 2019: sinus rhythm. no a fib/svt Zio Patch 2019: unremarkable. Anesthesia Assessment and Plan Anesthesia History Personal History: No History of Anesthesia Complications Family History: No Family History of Anesthesia Complications Exercise Tolerance Exercise Tolerance: Metabolic Equivalents<4 Pertinent Negatives Pertinent Negatives: No Symptoms of GERD Cardiac & Pulmonary Exam Cardiac Exam: Normal S1/S2 Heart Sounds Pulmonary Exam: Clear Bilateral Breath Sounds Implantable Cardiac Device Does patient have a Pacemaker or an ICD?: No Airway Exam Known Difficult Airway: No Mallampati Class: 2 Mouth Opening: Normal (> 3cm) Thyromental Distance: Greater than 3 cm Neck Range of Motion: Full ROM Neck Circumference: Normal Teeth Condition: Normal Dentition ASA Classification ASA Score: ASA 2 Emergency Case?: No NPO Status NPO Status: NPO Clears >2 hours, Solids >8 hours Anesthesia Plan Resuscitation Status: Full Code Anesthesia Technique: General Anesthesia Airway Planned: Natural Airway Monitors Used: Standard Monitors
[2022-03-28 07:10] VITALS: BMI 25.4
[2022-03-28] MEDS: Lactated Ringers 1,000 ML 80 ML IV (07:10)
--- NOTE | 2022-03-28 07:24 | W.PM.DSUDISC ---
Date of service: 03/28/22 Time of Service: 07:24 Discharge Plan Disposition Patient Disposition: Home Condition: Good Discharge Details Reason For Visit: R ECTR Attending Provider: Anson Suazo Primary Care Provider: Rosa Elena Holly Home Meds and New Rx's Prescriptions: Continued sildenafil 100 mg tablet 100 mg PO DAILY PRN (Reason: sexual activity) Qty: 30 4RF Rx Instructions: administer 30 minutes to 4 hours before activity acetaminophen 500 mg tablet 500 mg PO Q6H PRN PRN (Reason: pain) Qty: 60 3RF hydrocodone-acetaminophen 5-325 mg tablet 1 tab PO Q6H PRN (Reason: pain) Qty: 4 0RF ibuprofen 600 mg tablet 600 mg PO TID PRN (Reason: pain) Qty: 90 3RF Discharge Instructions Stand Alone Forms: Gabriele Lux Tunnel Release Referrals: Anson Suazo MD [ [facility] STAFF PHYSICIAN] - Activity:: Activity as Tolerated Remove Dressings/Wound Care:: 48 hours Shower/Bathe:: 48 hours Diet:: As Tolerated Discharge Orders Discharge Orders: Discharge Order (Routine); Ordered 03/28/22 Ordered By: Tra Reyes
[2022-03-28] MEDS: ceFAZolin 2 GM/50 ML BAG IVPB (07:33)
[2022-03-28] MEDS: Acetaminophen 325 MG TAB 650 MG PO (07:43)
[2022-03-28] MEDS: Lidocaine 1% Pres-Free W/EPI 1/200,000 10 ML VIAL (07:46)
[2022-03-28 08:00] VITALS: BP 102/65; PULSE 52; RESP 16; TEMP 36.4; O2SAT 96
--- NOTE | 2022-03-28 08:14 | W.ANESPOSTOP ---
Postoperative Evaluation Date, Time and Location Date Performed: 03/28/22 Time Performed: :14 Patient Location: Day Surgery Unit Vital Signs Most Recent Imported Vital Signs: Most Recent Vital Signs Temp Pulse Resp BP Pulse Ox 36.4 C L 52 L 16 102/65 96 03/28/22 08:00 03/28/22 08:00 03/28/22 08:00 03/28/22 08:00 03/28/22 08:00 Pain Score Most Recent Pain Score: Most Recent Pain Score Pain Level 0 03/28/22 08:00 Assessment Mental Status: Awake (Alert & Oriented to Patient Baseline) Airway and Respiratory Function: Patent airway with normal (patient baseline) respiratory exam Cardiovascular Function: Hemodynamically Stable Hydration Status: Adequately Hydrated Nausea & Vomiting: No Nausea or Vomiting Pain: Pt. Denies Any Pain Peripheral Nerve Block: Patient did not receive a nerve block
[2022-03-28 08:31] VITALS: BP 111/67; PULSE 53; RESP 18; TEMP 36.5; O2SAT 96
--- NOTE | 2022-03-28 19:20 | W.PM.OP ---
Date of service: 03/28/22 Time of Service: 07:45 Operative Note Operative Note DATE OF PROCEDURE: 03/28/22 PRE-OP DIAGNOSIS: Right Carpal Tunnel Syndrome POST-OP DIAGNOSIS: same PROCEDURE: Right Endoscopic Carpal Tunnel Release SURGEON: Anson Suazo ANESTHESIA TYPE: General:No Airway Refer to Anesthesia Record ESTIMATED BLOOD LOSS: 0 PATHOLOGY: none sent TOURNIQUET TIME: 6 COMPLICATIONS: None Patient was transported to: same day Patient's condition: stable Indications: I have seen Gonzalez in clinic for symptoms of carpal tunnel syndrome. The numbness, tingling, and pain limited function. Clinical exam findings with nerve conduction tests confirmed the diagnosis of carpal tunnel syndrome. Nonoperative measures such as bracing, time, activity modifications had been tried but disability and pain persisted. He had a release of his left carpal tunnel done last week with excellent results. Once again, I reviewed the risks of the procedure to include, but not limited to, bleeding, infection, pain, stiffness, incomplete release, damage to nerves or vessels, persistent numbness, recurrence. Despite these risks, the patient elected to proceed. Findings: There was tightened carpal tunnel. This was dilated and released successfully with the endoscopic with increased space within the tunnel. The antebrachial fascia was released proximally freeing the median nerve at the wrist. Procedure Description: Brennon was greeted in the preoperative holding area where the correct side was identified and marked. The consent was reviewed with the patient and signed. The history and physical was updated. All questions were answered. He was taken back to the operating room. The patient was placed into the supine position on the operating room table with the right arm on an arm board. A nonsterile tourniquet was placed high onto the arm. All bony prominences were well padded. Prophylactic antibiotics in the form of Cefazolin were administered. The right arm was then prepped with Chloraprep and draped in a standard fashion with stockinette and extremity drape. A timeout to confirm correct identity, side and site, procedure, allergies, anesthesia, and medical concerns was performed. The surgical site was marked in the volar wrist creases in line with the radial border of the fourth ray. This area was anesthetized with approximately 6cc of 1% Lidocaine. The limb was then exsanguinated with an Esmarch. The skin was incised with a 15 blade, approximately 1cm. The skin only was cut and the deeper tissue was dissected bluntly with a tenotomy scissor, avoiding passing nerve and venous structures. The fascia was penetrated and opened bluntly. A two-prong skin hook was placed under this proximal fascial edge. A series of hamate finders were used to identify and dilate the carpal tunnel. Synovial elevator was used to free synovial attachments to the underside of the transverse carpal ligament. My thumb was kept in the palm to kale the distal extent of the carpal tunnel and correctly position the hand. The Microaire endoscope was inserted without difficulty and without resistance. Excellent visualization showed horizontally running fibers of the transverse carpal ligament (TCL). The distal extent of the TCL was visualized and the end of the scope palpated with the thumb. The blade was elevated and withdrawn from distal to proximal. The TCL was split into two flaps. The endoscope was reinserted to confirm complete release and any remnant ligament was incised. The scope was withdrawn and the proximal aspect of the carpal tunnel was grossly inspected and appeared release with the median nerve visible. The antebrachial fascia at the level of the wrist was then freed from the overlying skin and then the underlying median nerve with blunt dissection. This was transected longitudinally for about 3cm proximal to the wrist incision. The wound was then irrigated with easy flow of irrigant distally and proximally. The incision was closed with a single 4-0 Nylon suture. The wound was dressed with Xeroform, Gauze, Kerlix and Tj. The tourniquet was deflated with the initial dressing and held with some pressure. Blood flow returned easily to all digits with capillary refill less than 2 seconds. The patient tolerated the procedure well and was returned to the Same Day Surgery area in a stable condition suffering no known complication.
== END 2022-03-28 08:45 | disposition home or self-care (01) ==
PROVIDERS: PCP Family Medicine; Visit Provider Student in an Organized Health Care Education/Training Program
PROC: 01N54ZZ Release Median Nerve, Percutaneous Endoscopic Approach (ICD-10-PCS; CPT 29848; principal; 2022-03-28 07:30)
DX: G56.01 Carpal tunnel syndrome, right upper limb (principal); E78.5 Hyperlipidemia, unspecified
CPT/HCPCS: 29848; J0690; J1885; J2405

== ENCOUNTER → 2022-04-06 08:49 | Outpatient (BNVA) | payer MEDICARE, SELFPAY | PROVIDERS: PCP Family Medicine; Referring Provider Family Medicine; Visit Provider Physician Assistant | DX: Z47.89 Encounter for other orthopedic aftercare (principal); G56.03 Carpal tunnel syndrome, bilateral upper limbs ==

== ENCOUNTER → 2022-04-12 13:04 | Outpatient (BNVA) | payer MEDICARE, SELFPAY | PROVIDERS: PCP Family Medicine; Referring Provider Family Medicine; Visit Provider Physical Therapy Assistant | DX: L72.3 Sebaceous cyst (principal) | CPT/HCPCS: 99212 ==

== ENCOUNTER → 2022-06-28 10:41 | Outpatient (BNVA) | payer MEDICARE, SELFPAY | PROVIDERS: PCP Family Medicine; Referring Provider Family Medicine | DX: M65.331 Trigger finger, right middle finger (principal); M72.0 Palmar fascial fibromatosis [Dupuytren]; M18.11 Unilateral primary osteoarthritis of first carpometacarpal joint, right hand; M18.12 Unilateral primary osteoarthritis of first carpometacarpal joint, left hand | CPT/HCPCS: 20550; J1030 ==

== ENCOUNTER → 2023-02-25 11:01 | Outpatient (BNVA) | payer MEDICARE, SELFPAY | PROVIDERS: PCP Family Medicine; Referring Provider Family Medicine; Visit Provider Student in an Organized Health Care Education/Training Program | DX: M65.331 Trigger finger, right middle finger (principal); M72.0 Palmar fascial fibromatosis [Dupuytren] | CPT/HCPCS: 99213 ==

== ENCOUNTER 2023-03-05 10:00 | Day surgery (SDC) | payer MEDICARE, SELFPAY ==
--- NOTE | 2023-03-05 09:04 | W.PM.DSUDISC ---
Date of service: 03/05/23 Time of Service: 09:05 Discharge Plan Disposition Patient Disposition: Home Condition: Good Discharge Details Reason For Visit: Right middle finger trigger and Dupuytren's Attending Provider: Anson Suazo Primary Care Provider: Rosa Elena Holly Home Meds and New Rx's Prescriptions: Continued sildenafil 100 mg tablet 100 mg PO DAILY PRN (Reason: sexual activity) Qty: 30 4RF Rx Instructions: administer 30 minutes to 4 hours before activity acetaminophen 500 mg tablet 500 mg PO Q6H PRN PRN (Reason: pain) Qty: 60 3RF ibuprofen 600 mg tablet 600 mg PO TID PRN (Reason: pain) Qty: 90 3RF Discharge Instructions Stand Alone Forms: Gabriele Abebe Finger Release Referrals: Anson Suazo MD [ [facility] STAFF PHYSICIAN] - Activity:: Elevate Remove Dressings/Wound Care:: 48 hours Shower/Bathe:: 48 hours Diet:: As Tolerated Discharge Orders Discharge Orders: Discharge Order (Routine); Ordered 03/05/23 Ordered By: Maryellen Justice
[2023-03-05 10:18] VITALS: BP 113/76; PULSE 59; RESP 18; TEMP 36.3; O2SAT 97
[2023-03-05] MEDS: Sodium Bicarbonate 50 MEQ/50 ML VIAL (12:01)
[2023-03-05] MEDS: Lidocaine 1% Multi-Dose W/EPI 1/100,000 50 ML VIAL (12:01)
[2023-03-05 12:15] VITALS: BP 126/67; PULSE 62; RESP 18; TEMP 36.4; O2SAT 97
--- NOTE | 2023-03-05 12:49 | W.PM.OP ---
Date of service: 03/05/23 Time of Service: 12:00 Operative Note Operative Note DATE OF PROCEDURE: 03/05/23 PRE-OP DIAGNOSIS: Right Middle Finger Trigger Finger POST-OP DIAGNOSIS: same PROCEDURE: Trigger Finger Release - Right Middle Finger SURGEON: Anson Suazo ANESTHESIA TYPE: Local By Surgeon Refer to Anesthesia Record ESTIMATED BLOOD LOSS: 5 PATHOLOGY: none sent COMPLICATIONS: None Patient was transported to: same day Patient's condition: stable Indications: I have seen Brennon in clinic for symptoms of a trigger finger. The catching, clicking, locking, and pain limited function. The diagnosis of trigger finger was evident. The symptoms had not responded to conservative measures. I discussed trigger finger release with the patient. I reviewed the risks of the procedure to include, but not limited to, bleeding, infection, pain, stiffness, incomplete release, damage to nerves or vessels, continued catching, recurrence. Despite these risks, the patient elected to proceed. Findings: There was a tightened A1 jesika which was released. The flexor tendons were inspected and the patient was able to move the finger without any catching, clicking, or locking. There was notable synovitis around the tendons and thickened overlying fascia. Procedure Description: Brennon was greeted in the preoperative holding area where the correct side was identified and marked. The consent was reviewed with the patient and signed. All questions were answered. He was taken back to the operating room. The patient was placed into the supine position on the operating room table with the right arm on an arm board. All bony prominences were well padded. No prophylactic antibiotics were administered since this was a clean, elective hand surgical case. The right arm was then prepped with Chloraprep and draped in a standard fashion with stockinette and extremity drape. A timeout to confirm correct identity, side and site, procedure, allergies, anesthesia, and medical concerns was performed. The surgical site was marked as a Kayla type incision directly over the A1 jesika of the involved digit and extending slightly proximal where thickening of the fascia was palpated. This was confirmed with palpation during finger flexion. This area, overlying the metacarpal head, was then anesthetized with 1% Lidocaine with epinephrine and buffered with sodium bicarb. The patient tolerated this well and once the anesthetic had setup, the procedure began. A longitudinal incision was made through skin only, approximately 1cm. The deep tissues were dissected bluntly. Once the A1 jesika and flexor tendons were identified the soft tissue including neurovascular structures were retracted medially and laterally. There were no crossing structures over the A1 jesika. The proximal edge of the jesika was identified and the jesika was incised with tenotomy scissors. There was a release of the tendons once this was fully released. The tendons were then removed from the wound and inspected. Excess synovium was resected. The tendons were then returned and the patient was asked to move the finger into deep flexion and back to extension. There was no recreation of the pre-operative symptoms. The hand was then once more inspected for any A0 jesika or area of possible constriction. The wound was then irrigated and the skin was closed with 4-0 Nylon. This was dressed with gauze and a Conform dressing. The patient tolerated the procedure well and was returned to the Same Day Surgery area in a stable condition suffering no known complication.
== END 2023-03-05 12:34 | disposition home or self-care (01) ==
LOC: SUR 10:01
PROVIDERS: PCP Family Medicine; Visit Provider Student in an Organized Health Care Education/Training Program
PROC: (CPT 26055; principal; 2023-03-05 15:30)
DX: M65.331 Trigger finger, right middle finger (principal)
CPT/HCPCS: 26055

== ENCOUNTER → 2023-03-14 11:10 | Outpatient (BNVA) | payer MEDICARE, SELFPAY | PROVIDERS: PCP Family Medicine; Referring Provider Family Medicine | DX: Z47.89 Encounter for other orthopedic aftercare (principal); M65.331 Trigger finger, right middle finger ==

== ENCOUNTER 2023-11-18 10:34 | Outpatient (REF) | payer MEDICARE, SELFPAY ==
--- NOTE | 2023-11-18 10:15 | SKI_PTH ---
PATIENT: Brennon Taylor LOC: [facility] #:[id number] AGE/SX: 73/M ROOM: RE11/18/[address]: Rosa Elena Holly MD, DC : 1950 BED: DIS: 11/18/2023 SPEC #: [id number] RECD: 11/18/23 12:19 STATUS: DARY REQ #: [id number] MIRA: 11/18/23 10:[address]: Rosa Elena Holly DEPT: Surgical Specimen RECD BY: Tova Lu Tissues: 1 - SKIN BIOPSY(SHAVE/PUNCH) Procedures: SKIN LEVEL 4 Comments: [id number]
== END 2023-11-18 10:35 | disposition home or self-care (01) ==
LOC: LBN 10:34
PROVIDERS: PCP Family Medicine; Visit Provider Family Medicine
DX: L82.1 Other seborrheic keratosis (principal)
CPT/HCPCS: 88305

== ENCOUNTER → 2023-11-19 00:47 | Outpatient (CLI) | payer MEDICARE, SELFPAY ==
--- NOTE | 2023-11-19 14:34 | DI.RAD_ITS ---
Exam(s) XR SHOULDER LT COMPLETE 2+V EXAM: XR SHOULDER LT COMPLETE 2+V CLINICAL HISTORY: l shoulder pain,M25.512. TECHNIQUE: 2D digital imaging was performed. Three views. COMPARISON: MR MR UPPER JOINT RT WO from 09/15/2020 FINDINGS: BONES: No acute fracture is present. No bony destructive lesion is seen. Of prior resection of the d istal clavicle. Prominent spurring at the undersurface of the acromion and humeral head. Spurring a t the glenohumeral joint. JOINTS: No dislocation present. Humeral head abnormally positioned beneath the undersurface of the a cromion. Findings consistent with chronic rotator cuff tear. SOFT TISSUE: Normal. IMPRESSION: Postsurgical and degenerative changes. DATA REPOSITORY: RADIATION DOSE DELIVERED:
== END ==
PROVIDERS: PCP Family Medicine; Visit Provider Family Medicine
DX: M25.512 Pain in left shoulder (principal); M19.012 Primary osteoarthritis, left shoulder
CPT/HCPCS: 73030

== ENCOUNTER → 2023-12-04 08:20 | Outpatient (BNVA) | payer MEDICARE, SELFPAY | PROVIDERS: PCP Family Medicine; Referring Provider Family Medicine; Visit Provider Student in an Organized Health Care Education/Training Program | DX: M75.102 Unspecified rotator cuff tear or rupture of left shoulder, not specified as traumatic (principal); M19.012 Primary osteoarthritis, left shoulder | CPT/HCPCS: 20610; J1010 ==

== ENCOUNTER 2024-10-07 09:19 | Outpatient (CLI) | payer MEDICARE, SELFPAY ==
--- NOTE | 2024-10-07 08:30 | DI.RAD_ITS ---
Exam(s) XR SHOULDER RT COMPLETE 2+V EXAM: XR SHOULDER RT COMPLETE 2+V CLINICAL HISTORY: RIGHT SHOULDER PAIN. TECHNIQUE: 2D digital imaging was performed. Two views. COMPARISON: CR XR SHOULDER RT COMPLETE 2+V from 08/23/2020 FINDINGS: BONES: No acute fracture is present. No bony destructive lesion is seen. Degenerative spurring and subchondral cysts in the greater tuberosity. JOINTS: No dislocation present. No significant degenerative changes of the AC joint. Glenohumeral joint space is maintained. Mild periarticular spurring. The humeral head is again noted to be somewhat superiorly positioned which could indicate chronic rotator cuff tear. SOFT TISSUE: Normal. IMPRESSION: Mild degenerative changes and suggestion of chronic rotator cuff tear. DATA REPOSITORY: RADIATION DOSE DELIVERED:
== END 2024-10-07 09:20 | disposition home or self-care (01) ==
LOC: DIORS 09:19
PROVIDERS: PCP Family Medicine; Referring Provider Family Medicine; Visit Provider Student in an Organized Health Care Education/Training Program
DX: M75.101 Unspecified rotator cuff tear or rupture of right shoulder, not specified as traumatic (principal); M12.811 Other specific arthropathies, not elsewhere classified, right shoulder; S46.211A Strain of muscle, fascia and tendon of other parts of biceps, right arm, initial encounter; X58.XXXA Exposure to other specified factors, initial encounter
CPT/HCPCS: 99213; 73030

== ENCOUNTER 2024-10-14 02:13 | Outpatient (CLI) | payer MEDICARE, SELFPAY ==
--- NOTE | 2024-10-14 06:45 | DI.RAD_ITS ---
Exam(s) XR FOOT LT COMPLETE EXAM: XR FOOT LT COMPLETE CLINICAL HISTORY: Left foot pain,m79.672. TECHNIQUE: 2D digital imaging was performed. COMPARISON: No exams were available for comparison FINDINGS: 3 views No evidence of acute fracture nor diastasis of the Lisfranc joint. The great toe metatarsophalangeal joint appears unremarkable as do the other MTP joints and interphalangeal joints and tarsometatarsal joints. There are mild degenerative changes in the talonavicular joint. Most prominent finding here is heavy calcification within the distal Achilles tendon over a distance of 6 cm at and cephalad to the insertion site on the posterior calcaneus. This calcification measures over 1 cm thick. There is no inferior calcaneal spur. There is no calcification in the plantar fascia. IMPRESSION: There is prominent calcification in the distal 6 cm of the Achilles tendon. DATA REPOSITORY: RADIATION DOSE DELIVERED:
== END 2024-10-14 02:33 ==
PROVIDERS: PCP Family Medicine; Visit Provider Podiatrist
DX: M79.672 Pain in left foot (principal); M76.62 Achilles tendinitis, left leg; I87.2 Venous insufficiency (chronic) (peripheral)
CPT/HCPCS: 99214; 73630

== ENCOUNTER 2024-10-19 02:50 | Outpatient (CLI) | payer MEDICARE, SELFPAY ==
--- NOTE | 2024-10-19 07:30 | DI.CT_ITS ---
Exam(s) CT UPPER EXTREMITY RT WO EXAM: CT UPPER EXTREMITY RT WO CLINICAL HISTORY: SURGICAL PLANNING,rt rotator cuff arthropathy,traumatic rupture rt biceps t TECHNIQUE: Imaging Protocol: Axial computed tomography images with coronal and sagittal reformatted images were created and reviewed. CONTRAST MATERIAL: Intravenous: None COMPARISON: CR XR SHOULDER RT COMPLETE 2+V from 10/07/2024 FINDINGS: OSSEOUS: There is no evidence of fracture or dislocation the glenohumeral joint. There is small calcific density off the lateral aspect of the greater tuberosity the supraspinatus tendon consistent with calcific tendinitis. There also degenerative subarticular cysts in the greater tuberosity self. There are moderate degenerative changes in the glenohumeral joint including mild joint space narrowing and there is an osteophyte on the inferior articular surface of the humeral head. Also small calcific density immediately subjacent to the osseous glenoid which is possibly related to periosteal stripping. The orientation of the AC joint is somewhat un conventional in that the joint spaces horizontally orientated. Is typically vertically orientated. There few small calcifications in the periarticular region of the AC joint. Bone density is age-appropriate. No ominous osseous lesions. IMPRESSION: Osteoarthritic degenerative changes in the glenohumeral joint and AC joint. Soft tissue calcifications as described above. Degenerative subarticular cysts noted in the greater tuberosity. RADIATION DOSE DELIVERED: 146.21 mGy.cm Total DLP DATA REPOSITORY: All CT scans at this facility are submitted to the National Radiology Data Registry (NRDR) Dose Index Registry (DIR) with the [employer] (A[employer]). RADIATION OPTIMIZATION: All CT scans at this facility use at least one of these dose optimization techniques: automated exposure control; mA and/or kV adjustment per patient size (includes targeted exams where dose is matched to clinical indication); or iterative reconstruction.
== END 2024-10-19 03:10 ==
LOC: DI 02:50
PROVIDERS: PCP Family Medicine; Visit Provider Student in an Organized Health Care Education/Training Program
DX: M12.811 Other specific arthropathies, not elsewhere classified, right shoulder (principal)
CPT/HCPCS: 73200

== ENCOUNTER → 2024-10-21 13:15 | Outpatient (BNVA) | payer MEDICARE, SELFPAY | PROVIDERS: PCP Family Medicine; Referring Provider Family Medicine; Visit Provider Student in an Organized Health Care Education/Training Program | DX: M75.101 Unspecified rotator cuff tear or rupture of right shoulder, not specified as traumatic (principal); M12.811 Other specific arthropathies, not elsewhere classified, right shoulder; S46.211A Strain of muscle, fascia and tendon of other parts of biceps, right arm, initial encounter; X58.XXXA Exposure to other specified factors, initial encounter | CPT/HCPCS: 99214 ==

== ENCOUNTER 2024-11-05 05:59 | Day surgery (SDC) | payer MEDICARE, SELFPAY ==
[2024-11-05] VITALS (23 sets, daily range): BP systolic 101–151; BP diastolic 54–85; PULSE 46–71; RESP 15–22; TEMP 36.5–36.7; O2SAT 95–98; BMI 23.8
[2024-11-05] MEDS: Lactated Ringers 1,000 ML 30 ML IV (06:40)
--- NOTE | 2024-11-05 07:01 | ANES.PREOP_ITS ---
General Info Date of Service Date Performed: 11/05/24 Height: 5 ft 11 in Weight: 77.5 kg Body Mass Index (BMI): 23.8 Surgical Procedure: Operation Date: 11/05/24 07:40 Proposed Procedure Side Surgeon p Shoulder Reverse Total Arthroplasty Right Obie Zavaleta MD Meds Allergies and Home Medications Allergies Allergy/AdvReac Type Severity Reaction Status Date / Time No Known Drug Allergies Allergy none Verified 11/05/24 06:06 Home Medication ?Medication ?Instructions ?Recorded sildenafil 100 mg tablet 100 mg PO DAILY PRN sexual 0 09/12/21 activity #30 tabs acetaminophen 500 mg tablet 500 mg PO Q6H PRN PRN pain #60 tabs 03/21/22 ibuprofen 600 mg tablet 600 mg PO TID PRN pain #90 t abs 03/21/22 Current Visit Medications: Current Medications Generic Name Dose Route Start Last Admin Trade Name Freq PRN Reason Stop Dose Admin Ringer's Solution 1,000 mls @ 30 mls/hr 11/05/24 06:00 11/05/24 06:40 IV 11/05/24 23:59 30 mls/hr INFUSION VALENTIN Administration Cefazolin Sodium/Dextrose 2 gm in 50 mls @ 100 mls/hr 11/05/24 06:00 Ancef Duplex IVPB 11/05/24 23:59 PREOP VALENTIN Tranexamic Acid/Sodium Chloride 1,000 mg in 100 mls @ 600 mls/hr 11/05/24 06:00 IVPB 11/05/24 23:59 PREOP VALENTIN IV Miscellaneous Supplies 1 each 11/05/24 06:00 Iv Access IV 11/05/24 23:59 DIRECTED VALENTIN Sodium Chloride 0 ml 11/05/24 06:00 Normal Saline Flush 10 Ml Syr IV 11/05/24 23:59 PRN PRN Sodium Chloride 0 ml 11/05/24 06:00 Normal Saline 10 Ml Vial IJ 11/05/24 23:59 DIRECTED PRN Sterile Water 0 ml 11/05/24 06:00 Water,Injection,Sterile 10 Ml Vial IJ 11/05/24 23:59 DIRECTED PRN PFSH Active Problems Active Problems: Problem Status Onset Code Venous (peripheral) insufficiency Acute I87.2 Insertional tendinopathy of left Achilles tendon Acute M76.62 Hearing difficulty Acute H91.90 Left rotator cuff tear arthropathy Acute M75.102, M12.812 Arthritis of left glenohumeral joint Acute M19.012 Left shoulder pain Acute M25.512 Arthritis of carpometacarpal (CMC) joint of right thumb Acute M18.11 Arthritis of carpometacarpal (CMC) joint of left thumb Acute M18.12 Dupuytren's contracture of right hand Acute M72.0 Septic arthritis of knee, right Chronic M00.9 H/O surgical procedure Chronic Z98.89 Trigger finger, left ring finger Chronic 07/23/16 M65.342 Rotator cuff dysfunction Chronic 06/01/14 M67.919 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 Hearing loss Chronic H91.90 Dermatitis Chronic L30.9 BPH associated with nocturia Chronic 06/01/14 N40.1, R35.1 H/O varicose veins Chronic Z86.79 History of total bilateral knee replacement (TKR) Chronic Z96.653 Concussion Acute S06.0X9A History of arthroscopy of knee Acute Z98.890 Syncope and collapse Acute R55 Left inguinal hernia Acute K40.90 Encounter for annual physical exam Acute Z00.00 Hyperlipidemia Acute E78.5 Right rotator cuff tear arthropathy Acute M75.101, M12.811 Traumatic rupture of right proximal biceps tendon Acute S46.211A Rotator cuff tear, right Acute M75.101 Left carpal tunnel syndrome Acute G56.02 BPH (benign prostatic hyperplasia) Chronic N40.0 Actinic keratoses Acute L57.0 Bilateral carpal tunnel syndrome Acute G56.03 Medical History Medical History Concussion Osteoarthritis Surgical History Surgical History History of carpal tunnel release History of left inguinal hernia repair (~05/02/21) H/O shoulder surgery History of appendectomy History of knee surgery Colonoscopy - MAC (08/21/16) 2004;neg Arthroplasty of knee 11/23/13 right, left Tobacco Smoking/Tobacco Use Status: Never Passive smoking exposure: Yes Second hand exposure: Yes Alcohol Alcohol Intake: current Alcohol intake frequency: holidays/special occasions only Alcohol type: beer Substance Use Substance use: Never Substance use type: does not use Vital Signs and Lab Results Vital Signs Most Recent Vital Signs in EMR: Most Recent Vital Signs Temp Pulse Resp BP Pulse Ox 36.5 C 59 L 16 141/82 H 98 11/05/24 06:07 11/05/24 06:07 11/05/24 06:07 11/05/24 06:07 11/05/24 06:07 Imaging and Studies Imaging and Studies Study information below may be from another EMR and interpreted by another provider. Please see original notes in EMR for more complete details. EKG Summary: 11/2018: sinus aide, minimal voltage criteria for LVH. Stress Test Summary: 2019: borderline study. treadmill score 8 - low risk. target HR was achieved. 14 mets. did have non-sustained VT in recovery. Echocardiogram Summary: 2019: LVEF 67%, mild-mod MR. Cardiac Catheterization Summary: 20 % mid and 20% distal LAD lesion, no intervention. MRI Summary: Cardiac 2019: normal LV fxn, possible myocarditis. Other Study Summary:: Holter 2019: sinus rhythm. no a fib/svt Zio Patch 2019: unremarkable. Anesthesia Assessment and Plan Anesthesia History Personal History: No History of Anesthesia Complications Family History: No Family History of Anesthesia Complications Exercise Tolerance Exercise Tolerance: Metabolic Equivalents<4 Pertinent Negatives Pertinent Negatives: No Symptoms of GERD, No Major Cardiovascular Symptoms or Complaints, No Major Pulmonary Symptoms or Complaints and No History of CVA/TIA Cardiac & Pulmonary Exam Cardiac Exam: Normal S1/S2 Heart Sounds Pulmonary Exam: Clear Bilateral Breath Sounds Implantable Cardiac Device Does patient have a Pacemaker or an ICD?: No Airway Exam Known Difficult Airway: No Mallampati Class: 2 Mouth Opening: Normal (> 3cm) Thyromental Distance: Greater than 3 cm Neck Range of Motion: Full ROM Neck Circumference: Normal Teeth Condition: Normal Dentition ASA Classification ASA Score: ASA 2 Emergency Case?: No NPO Status NPO Status: NPO Clears >2 hours, Solids >8 hours Anesthesia Plan Resuscitation Status: Full Code Anesthesia Technique: General Anesthesia Airway Planned: Endotracheal Tube Pain Management: Surgeon and patient request nerve block Monitors Used: Standard Monitors
--- NOTE | 2024-11-05 07:08 | W.PM.DSUDISC ---
Date of service: 11/05/24 Discharge Plan Disposition Patient Disposition: Home Condition: Stable Discharge Details Attending Provider: Obie Zavaleta Primary Care Provider: Rosa Elena Holly Home Meds and New Rx's Prescriptions: New naproxen 250 mg tablet 250 mg PO BID PRN (Reason: Moderate pain) Qty: 25 0RF tramadol 50 mg tablet 50 mg PO TID PRNQty: 18 0RF Continued sildenafil 100 mg tablet 100 mg PO DAILY PRN (Reason: sexual activity) Qty: 30 4RF Rx Instructions: administer 30 minutes to 4 hours before activity acetaminophen 500 mg tablet 500 mg PO Q6H PRN PRN (Reason: pain) Qty: 60 3RF ibuprofen 600 mg tablet 600 mg PO TID PRN (Reason: pain) Qty: 90 3RF Discharge Instructions Additional Instructions: Surgery: Right reverse total shoulder arthroplasty (retentive liner) with biceps tenodesis 11/05/2024 Activity: Do not lift anything heavier than a coffee. You should keep your arm at your side in a relatively neutral position at all times except for gentle range of motion exercises, physical therapy, and essential activities. You should use the sling whenever you are out of the house. At home it is best to remove the sling and rest the arm on a pillow at your side or support the operative side with your other hand. A physical therapy prescription will be sent electronically to start in about 3 weeks. STANDARD Reverse TSA Protocol. Prescriptions: Naproxen 250 mg take 1 every 12 hours with a meal as needed for moderate pain Tramadol 50 mg take 1 every 8 hours as needed for severe pain You may use [id number] Tylenol (acetaminophen) as needed for mild pain. These pain medications may be taken all at once or in different combinations as needed. Also, recommend Colace (docusate) as a stool softener as surgery and pain medicine cause constipation. You may try [id number] diphenhydramine (Benadryl) 25-50 mg nightly as a sleep aid Dressings: Leave dressing in place until follow-up. Keep clean and dry at all times. No showers please. Follow-up: 10-[address] Zavaleta You may take off the leg compression stockings this evening at home. You may also leave them on a few days longer if you have a history of leg swelling or edema. Please call the office during business hours with any questions or concerns. Let us know right away if you develop any redness, drainage, fevers, chest pain, or trouble breathing. Do not drink alcohol or drive for at least 24 hours after anesthesia. Stand Alone Forms: Anesthesia Discharge Inst., Beba Argueta (DSU) Discharge Orders Discharge Orders: Discharge Order (Routine); Ordered 11/05/24 Ordered By: Job Akins DS: Diagnosis Discharge Diagnosis (1) Right rotator cuff tear arthropathy: Status: Acute
--- NOTE | 2024-11-05 07:22 | ROE_ITS ---
Operative Note Operative Note PRE-OP DIAGNOSIS: Right: 1. Rotator cuff arthropathy 2. Proximal biceps rupture PROCEDURE: Right: 1. Reverse total shoulder arthroplasty, CPT # 77314 2. Open biceps tenodesis, CPT # 77531 The assistant branch operations manager was medically required as this procedure involves retraction, protection of neurovascular structures, and manipulation of multiple instruments and implants at the same time, which cannot be done without a skilled assistant branch operations manager. SURGEON: Obie Zaavleta TALENT PARTNER: Job Akins ANESTHESIA TYPE: Local By Surgeon, General LMA/ETT and Primary Nerve Block Refer to Anesthesia Record ESTIMATED BLOOD LOSS: 150 COMPLICATIONS: None Patient was transported to: PACU Patient's condition: stable Implants: DePuy [employer] shoulder system Small modular baseplate with 35 mm central screw 40, 30, and 20 mm peripheral locking screws 40 mm +8 mm glenosphere Large standard length stem +0 mm humeral shell and +4 mm retentive liner Indications: See medical record for details Findings: Significant global bursitis. Proximal biceps rupture in the superior aspect of the bicipital groove. High-grade partial subscapularis tearing. Deficient supraspinatus and partial infraspinatus retracted chronic tearing. Procedure Description: In the operating room, general anesthesia was induced. The patient was positioned beachchair on the operating room table. All bony prominences were well-padded. Preoperative antibiotics were administered. The shoulder was prepped and draped in the usual sterile fashion for shoulder arthroplasty. The correct patient, procedure, and side of the procedure were all verified prior to incision. The deltopectoral approach was preinjected with 0.25% bupivacaine containing epinephrine and taken to the anterior shoulder. Care was taken to bluntly dissect the interval between the deltoid and pectoralis major muscles and to identify the cephalic vein within its fat stripe. The vein was preserved and mobilized laterally. Subdeltoid space and conjoined tendon were freed of adhesions. The long head of the biceps tendon was identified just lateral to the lesser tuberosity within the bicipital groove, but absent in the glenohumeral joint. The uppermost margin of the pectoralis major tendon was released from the proximal humerus. The long head of the biceps tendon was inspected below the level of the humeral cut and it was mainly to have given the chronic rupture, but mobile. In order to prevent additional retraction or dysfunction it was tenodesed in situ using SutureTape in a [id number] fashion securing it superior margin the pectoralis major tendon. The significant bursitis was debrided opening the joint.. A subscapularis tenotomy of the lower remnant while bringing the arm gradually into external rotation. Care was taken to avoid the axillary nerve by only working on the bone inferiorly and medially. Notable thickening and retracted tearing of the supraspinatus and infraspinatus were debrided to a more stable posterior superior margin. Appropriate coagulation was achieved especially interiorly. The anatomic neck was cut using an oscillating saw with the humeral head bone brought back table in case there was a need for future bone grafting. Attention was then turned to the glenoid and retractors were placed and a circumferential release performed removing soft tissue about the glenoid rim. Care was taken inferiorly to work on bone only between 5 and 7:00 o'clock and bluntly elevate tissues inferiorly. The glenoid was sized and guidepin inserted accounting for patient version and inclination. The guidepin was advanced just through the far cortex ensuring adequate central fixation length. The one step prep glenoid reamer was then used to prepare glenoid according to winchman/crane operator specifications. The baseplate was impacted onto the glenoid surface. The central compression screw was placed. The central screw truckload checker was used to confirm the central screw was fully seated. The locking guide was then used to drill and place appropriately lengthed inferior, anterior, and posterior screws. The [id number]-[id number] reamer was used to achieve adequate peripheral reaming. The glenosphere was applied with the loan specialist and impacted to engage the Edwards taper. It was then locked with appropriate countersinking of the setscrew. The glenosphere had good fit, appropriate positioning, and no soft tissue or bony impingement. The proximal humerus was delivered from the wound with adduction and external rotation. The humerus was sized and pin placed. Reaming and blazing were done over the pin. The stem pin punch was used through the blazer to confirm distal path and complete preparation with some additional bone removed posteriorly and laterally to accommodate for canal and stem geometry. The final stem was impacted into place. Trialing was started with a +0 mm shell and liner. The shoulder was reduced and taken through range of motion and demonstrated excellent stability and good tension on the soft tissues. Trial components were built up to +4 mm liner, but this had too much tension on the deltoid and conjoined tendon. Trial shell and liner were removed. The final shell was impacted onto the humeral stem, trialing confirmed +0 mm liner, and final liner was clicked into place. Retentive liner was chosen due to deficient rotator cuff. The shoulder was reduced and range of motion, stability, and tension confirmed. The shoulder was copiously irrigated with Betadine and normal saline. Vancomycin powder was distributed deeply about the shoulder and through subcutaneous tissues. The deltopectoral interval was approximated with 2-0 Monocryl burying the cephalic vein, which was diminutive due to significant branching superficially which had to be coagulated. Subcutaneous tissue was irrigated then closed using 2-0 Monocryl in a buried interrupted fashion. Skin was closed using 3-0 Monocryl in a buried subcuticular fashion. Skin glue was applied to the incision. A silver impregnated bandage was placed over the incision. The extremity was placed into a shoulder immobilizer. The patient awoke from anesthesia without complication and was taken to the recovery room in stable condition. Date of Procedure: 11/05/24
--- NOTE | 2024-11-05 07:26 | W.ANESNERVE ---
Nerve Block Single Injection Procedure Date and Time Date Performed: 11/05/24 Procedure Start: 07:14 Location Where Procedure Performed Procedure Location: Day Surgery Unit Reason Performed: Postoperative Analgesia Requesting Provider: Obie Zavaleta Timeout Performed Timeout Performed: Yes Monitoring Used ECG, Blood Pressure, SpO2 and See EMR for corresponding vital signs Sterility Sterility: Hand Hygiene, Surgical Cap, Surgical Mask, Sterile Gloves and Chlorhexidine Sedation Given During Procedure Sedation Given (Indicate Dose Given): Versed IV Dose:: 2mg Patient Mental Status Patient Mental Status: Sedate with meaningful communication Nerve Block 1st Nerve Block: Laterality: Right Block Type: Interscalene Ultrasound Image Saved?: Yes Needle / Catheter Used: 100mm SonoPlex II Local Anesthetic Bolus (Indicate Dose Given): Lidocaine used for local infiltration of skin, Injected in 3-5ml increments after negative blood aspiration, Bupivacaine 0.25% Dose:: 10mL and Exparel Dose:: 10mL Additives (Indicate Dose Given): None Ultrasound: Sterile probe cover and gel used Nerve Stimulator: Supplement to Ultrasound use and No twitch or parasthesia noted < 0.5 mA Paresthesia: None Procedure Tolerated: No Complications and Patient tolerated well Procedure Outcome: Successful Performed By: Sophia Baez Supervised By: Agueda Hogue
[2024-11-05] MEDS: ceFAZolin 2 GM/50 ML BAG IVPB (07:46)
[2024-11-05] MEDS: TRANEXAMIC ACID/SOD. CHL. 1,000 MG/100 ML BAG 600 MG IVPB (07:51)
[2024-11-05] MEDS: Bupivacaine 0.25% Pres-Free W/EPI 30 ML VIAL (08:18)
[2024-11-05] MEDS: Vancomycin 1,000 MG VIAL 1000 MG (08:18)
--- NOTE | 2024-11-05 10:57 | W.ANESPOSTOP ---
Postoperative Evaluation Date, Time and Location Date Performed: 11/05/24 Time Performed: 10:57 Patient Location: PACU Vital Signs Most Recent Imported Vital Signs: Most Recent Vital Signs Temp Pulse Resp BP Pulse Ox 36.7 C 57 L 20 128/69 95 11/05/24 10:45 11/05/24 10:51 11/05/24 10:51 11/05/24 10:50 11/05/24 10:51 Pain Score Most Recent Pain Score: Most Recent Pain Score Pain Level 0 11/05/24 10:50 Assessment Mental Status: Awake (Alert & Oriented to Patient Baseline) Airway and Respiratory Function: Patent airway with normal (patient baseline) respiratory exam Cardiovascular Function: Hemodynamically Stable Hydration Status: Adequately Hydrated Nausea & Vomiting: No Nausea or Vomiting Pain: Pt. Denies Any Pain Peripheral Nerve Block: Regional nerve block not resolved at time of post operative discharge
[2024-11-05] MEDS: ceFAZolin 1 GM/50 ML BAG IVPB (11:16)
--- NOTE | 2024-11-05 11:29 | DI.RAD_ITS ---
Exam(s) XR SHOULDER RT COMPLETE 2+V EXAM: XR SHOULDER RT COMPLETE 2+V CLINICAL HISTORY: Shoulder Arthritis. TECHNIQUE: 2D digital imaging was performed. Two views. Portable. COMPARISON: CR XR SHOULDER RT COMPLETE 2+V from 10/07/[address] UPPER EXTREMITY RT WO from 10/19/2024 FINDINGS: BONES: No acute fracture is present. No bony destructive lesion is seen. JOINTS: Status post placement of a reverse shoulder prosthesis. The alignment appears satisfactory. SOFT TISSUE: There is residual postsurgical air in the soft tissues. IMPRESSION: Satisfactory positioning of reverse shoulder prosthesis. DATA REPOSITORY: RADIATION DOSE DELIVERED:
--- NOTE | 2024-11-06 14:34 | NUR.NOTE ---
Received call from Brennon Taylor's spouse at 1425 reporting that pt's bandage was dripping blood. No other symptoms noted, afebrile. Spouse reports that pt took a nap (approx. 2 hours ago), and when he woke up his bandage and shirt was saturated with blood. Currently the Dr. Zavaleta (original surgeon) unavailable in the OR, and the ortho office is closed. With this information, the pt was referred to the ED. The pt's spouse available to drive and after conversing, this RN and the pt's spouse felt it was safe for the spouse to drive the pt to ED (vs. ambulance). This RN will notify Dr. Zavaleta when he is available after current surgery.
== END 2024-11-05 12:43 | disposition home or self-care (01) ==
PROVIDERS: PCP Family Medicine; Visit Provider Student in an Organized Health Care Education/Training Program
PROC: (CPT 23472; principal; 2024-11-05 07:30)
DX: S46.211A Strain of muscle, fascia and tendon of other parts of biceps, right arm, initial encounter (principal); M12.811 Other specific arthropathies, not elsewhere classified, right shoulder; X58.XXXA Exposure to other specified factors, initial encounter; G89.18 Other acute postprocedural pain
CPT/HCPCS: 23472; 23430; C1713; 64415; 73030; J0131; J0665; J0666; J0690; J1100; J1596; J1885; J2003; J2250; J2371; J2405; J2704; J3373

== ENCOUNTER 2024-11-06 15:16 | Emergency (ER) | payer MEDICARE, SELFPAY ==
[2024-11-06 15:17] VITALS: BP 121/71; PULSE 57; RESP 12; TEMP 36.3; O2SAT 97
[2024-11-06 16:16] VITALS: BP 121/75; PULSE 62; RESP 16; O2SAT 98
--- NOTE | 2024-11-06 22:55 | ED.GENADUL_ITS ---
Discharge Plan Disposition Patient Disposition: Home Condition: Stable Discharge Details Clinical Impression: Post surgical complication Primary Care Provider: Rosa Elena Holly ED Provider: Renetta Hahn Home Meds and New Rx's Prescriptions: Continued sildenafil 100 mg tablet 100 mg PO DAILY PRN (Reason: sexual activity) Qty: 30 4RF Rx Instructions: administer 30 minutes to 4 hours before activity oxycodone 5 mg tablet 5 - 10 mg PO .q4-6h MDD 30 mg PRN (Reason: pain) Qty: 18 0RF acetaminophen 500 mg tablet 500 mg PO Q6H PRN PRN (Reason: pain) Qty: 60 3RF naproxen 250 mg tablet 250 mg PO BID PRN (Reason: Moderate pain) Qty: 25 0RF Discharge Instructions Additional Instructions: Please follow-up with Dr Zavaleta as discussed take tylenol and additional oxycodone as prescribed please call Dr Zavaleta or return to ED with worsening pain, fever, redness, or should any new concerns arise Referrals: Rosa Elena Holly MD, [place] [Primary Care Provider, Medicine] Obie Zavaleta MD [ [facility] STAFF PHYSICIAN, Orthopaedic Surgical] Discharge Data Discharge Date/Time-TO BE ENTERED AT DEPARTURE: 11/06/24 16:34 HPI General Date/Time Provider Initiated Documentation: 11/06/24 15:17 . HPI Narrative: 74-year-old male presents for evaluation of postoperative shoulder surgery. He woke up with pain and bleeding in his right shoulder. Advised by Dr. Graf to visit the ED. No history of coagulopathy or trauma to the site. Alert and oriented. Dr. Graf present during initial assessment and bandage placement. Recommends close outpatient follow-up. No active bleeding at reassessment, wound site appears well. Afebrile and nontoxic. Discharged home in stable condition with stable vitals. Return precautions reviewed. Related Data Home Medications ?Medication ?Instructions ?Recorded ?Confirmed sildenafil 100 mg tablet 100 mg PO DAILY PRN sexual 0 09/12/21 11/06/24 activity #30 tabs acetaminophen 500 mg tablet 500 mg PO Q6H PRN PRN pain #60 tabs 03/21/22 11/06/24 naproxen 250 mg tablet 250 mg PO BID PRN Moderate p ain 11/05/24 11/06/24 #25 tabs oxycodone 5 mg tablet 5 - 10 mg (1 - 2 x 5 mg) PO .q4-6h 11/06/24 11/06/24 PRN pain #18 tabs Previous Rx's ?Medication ?Instructions ?Recorded sildenafil 100 mg tablet 100 mg PO DAILY PRN sexual 0 09/12/21 activity #30 tabs acetaminophen 500 mg tablet 500 mg PO Q6H PRN PRN pain #60 tabs 03/21/22 naproxen 250 mg tablet 250 mg PO BID PRN Moderate p ain 11/05/24 #25 tabs oxycodone 5 mg tablet 5 - 10 mg (1 - 2 x 5 mg) PO .q4-6h 11/06/24 PRN pain #18 tabs Allergies Allergy/AdvReac Type Severity Reaction Status Date / Time No Known Drug Allergies Allergy none Verified 11/06/24 15:20 General Stated Complaint: Orthopedic FRANCISCO: 4 Exam Narrative Exam Narrative: General Appearance: Alert and oriented. Vital signs: Within normal limits. HEENT: Within normal limits. Respiratory: Within normal limits. Skin: Surgical site well healing without dehiscence, scant blood noted. Neurological: Neurovascularly intact. Course Vital Signs Vital signs: Vital Signs Temperature 36.3 C L 11/06/24 15:17 Pulse 57 L 11/06/24 15:17 Respiratory Rate 12 11/06/24 15:17 Blood Pressure 121/71 11/06/24 15:17 Pulse Oximetry 97 11/06/24 15:17 Temperature 36.3 C L 11/06/24 15:17 Temperature Source Oral 11/06/24 15:17 Pulse 62 11/06/24 16:16 Respiratory Rate 16 11/06/24 16:16 Blood Pressure 121/75 11/06/24 16:16 Blood Pressure Mean 90 11/06/24 16:16 Blood Pressure Position Sitting 11/06/24 15:17 Pulse Oximetry 98 11/06/24 16:16 Oxygen Delivery Method Room Air 11/06/24 15:17 Oxygen Flow Rate 0 11/06/24 15:17 Pain Level 7 11/06/24 15:17 Medical Decision Making Initial Assessment: 74-year-old male presents postop shoulder surgery yesterday, woke up with pain, right shoulder with bleeding. Patient is otherwise healthy without medical problems. Denies any history of coagulopathy or trauma to the postoperative site. Alert and oriented. Well healing surgical site without any dehiscence, scant blood noted. Neurovascularly intact. Not actively bleeding at time of reassessment, wound site looks well, afebrile and nontoxic. ED Course: - Evaluated in ED - Surgical site well-healing without dehiscence - Scant blood noted - Neurovascularly intact - Afebrile, nontoxic - Discharged home in stable condition with stable vitals Final Assessment: Postoperative pain and bleeding in the right shoulder. Surgical site well-healing, no active bleeding, neurovascularly intact, afebrile, nontoxic. Discharged home with stable vitals. Clinical Impression: - Postoperative status following shoulder surgery Disposition: - Discharged home in stable condition, return precautions reviewed - Follow-Up: Recheck tomorrow, outpatient setting ON LICENSE OF [facility] All Active Problems Post surgical complication (Acute) Venous (peripheral) insufficiency (Acute) Insertional tendinopathy of left Achilles tendon (Acute) Hearing difficulty (Acute) Left rotator cuff tear arthropathy (Acute) Arthritis of left glenohumeral joint (Acute) Left shoulder pain (Acute) Arthritis of carpometacarpal (CMC) joint of right thumb (Acute) Arthritis of carpometacarpal (CMC) joint of left thumb (Acute) Dupuytren's contracture of right hand (Acute) Septic arthritis of knee, right (Chronic) H/O surgical procedure (Chronic) a. arthroscopic irrigation and debridement right knee 12/19/2013 b. arthroscopic partial medial meniscectomy 11/23/2013 Trigger finger, left ring finger (Chronic 07/23/16) Rotator cuff dysfunction (Chronic 06/01/14) bilateral. surgery left. 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 Neg holter Left inguinal hernia (Acute) Encounter for annual physical exam (Acute) Hyperlipidemia (Acute) Right rotator cuff tear arthropathy (Acute) Traumatic rupture of right proximal biceps tendon (Acute) Rotator cuff tear, right (Acute) Left carpal tunnel syndrome (Acute) BPH (benign prostatic hyperplasia) (Chronic) Actinic keratoses (Acute) Bilateral carpal tunnel syndrome (Acute) S/p left ECTR 03/21/2022 S/p right ECTR 03/28/2022 Medical History Concussion Osteoarthritis Surgical History History of carpal tunnel release History of left inguinal hernia repair (~05/02/21) H/O shoulder surgery History of appendectomy History of knee surgery Colonoscopy - MAC (08/21/16) 2004;neg Arthroplasty of knee 11/23/13 right, left Family History Mother , age 89 No problems noted. Father , age 79 Heart disease Myocardial infarction Sister No problems noted. Sister No problems noted. Brother Heart disease Brother Heart disease NEW VALVE Hyperlipidemia Maternal Grandfather No problems noted. Paternal Grandfather No problems noted. Maternal Grandmother No problems noted. Paternal Grandmother No problems noted. Son No problems noted. Daughter No problems noted. Social History Smoking/Tobacco Use Status: Never Second Hand Exposure: Yes Smoking risk assessment performed?: Yes Alcohol Intake: current Alcohol Intake frequency: holidays/special occasions only Alcohol type: beer Drug use: Never Substance use type: does not use Caregiver/Support person: No Household members: spouse Housing: house Communication Needs: None Do you need help understanding health information?: Rarely Pets and animals: No Sexually active: Yes Do you think of yourself as: straight/heterosexual Current gender identity: male What is your relationship status?: How often do you talk on the phone with friends or family?: once per week How often do you get together with friends or relatives?: once per week How often do you attend lutheran or jain services?: decline to answer Do you belong to any clubs or organized social groups?: no Panel score (0-1 are the most socially isolated patients): 1 What type of physical activity do you participate in: bicycling, regular exercise and other Details: Skiing Duration: 60-90 minutes/day Frequency: 3-4 times per week Elyssa/Alevism: Non quaker Special elyssa needs: No Seatbelt use: always Helmet use: Yes Helmet use: always Drive intox or ride w/intox service parts driver: No Do you feel safe at home: Yes Do you feel safe in your relationship?: Yes
== END 2024-11-06 16:34 | disposition home or self-care (01) ==
PROVIDERS: Emergency Provider Physician Assistant; PCP Family Medicine
DX: Z98.890 Other specified postprocedural states (principal); M25.511 Pain in right shoulder; G89.18 Other acute postprocedural pain
CPT/HCPCS: 99283 ×2

== ENCOUNTER 2024-11-17 10:08 | Outpatient (CLI) | payer MEDICARE, SELFPAY ==
--- NOTE | 2024-11-17 09:00 | DI.RAD_ITS ---
Exam(s) XR SHOULDER RT COMPLETE 2+V EXAM: XR SHOULDER RT COMPLETE 2+V CLINICAL HISTORY: F/U RIGHT RTSA. TECHNIQUE: 2D digital imaging was performed. Two images were obtained. Grashey and Y views were obtained. COMPARISON: CR XR SHOULDER RT COMPLETE 2+V from 11/05/2024 FINDINGS: BONES: There are stable post operative changes of a right reverse total shoulder arthroplasty present. No acute fracture is identified. JOINTS: The orthopedic hardware is in good position. No evidence of hardware loosening. There is again seen widening of the acromioclavicular joint suggesting separation. SOFT TISSUE: There is persistent air seen in the soft tissues. IMPRESSION: 1. Stable right reverse total shoulder arthroplasty. 2. Right AC joint separation. 3. Air is again seen in the soft tissues. DATA REPOSITORY: RADIATION DOSE DELIVERED:
== END 2024-11-17 10:09 | disposition home or self-care (01) ==
LOC: DIORS 10:08
PROVIDERS: PCP Family Medicine; Referring Provider Family Medicine; Visit Provider Student in an Organized Health Care Education/Training Program
DX: Z47.89 Encounter for other orthopedic aftercare (principal); M75.101 Unspecified rotator cuff tear or rupture of right shoulder, not specified as traumatic; M12.811 Other specific arthropathies, not elsewhere classified, right shoulder
CPT/HCPCS: 99024; 73030

== ENCOUNTER 2024-12-22 14:56 | Outpatient (REF) | payer MEDICARE, SELFPAY ==
--- NOTE | 2024-12-22 11:00 | SKI_PTH ---
PATIENT: Brennon Taylor LOC: [facility] U#:[id number] AGE/SX: 74/M ROOM: RE12/22/[address]: Rosa Elena Holly MD, [place] : 1950 BED: DIS: 12/22/2024 SPEC #: [id number] RECD: 12/22/24 18:18 STATUS: DARY REQ #: [id number] MIRA: 12/22/24 11:[address]: Rosa Elena Holly DEPT: Surgical Specimen RECD BY: Renetta Rojas Tissues: 1 - SKIN BIOPSY(SHAVE/PUNCH) Procedures: SKIN LEVEL 4 Comments: [id number]
== END 2024-12-22 14:57 | disposition home or self-care (01) ==
LOC: LBN 14:56
PROVIDERS: PCP Family Medicine; Visit Provider Family Medicine
DX: L82.1 Other seborrheic keratosis (principal)
CPT/HCPCS: 88305

== ENCOUNTER 2024-12-28 01:48 | Outpatient (CLI) | payer MEDICARE, SELFPAY ==
[2024-12-29 11:43] LABS: Hepatitis C Ab w Rflx HCV PCR Negative (Negative)
== END 2024-12-28 01:49 | disposition home or self-care (01) ==
LOC: LOS 01:48
PROVIDERS: PCP Family Medicine; Visit Provider Family Medicine
DX: Z11.59 Encounter for screening for other viral diseases (principal)
CPT/HCPCS: 36415; 86803

== ENCOUNTER → 2025-01-05 08:48 | Outpatient (BNVA) | payer MEDICARE, SELFPAY | PROVIDERS: PCP Family Medicine; Referring Provider Family Medicine; Visit Provider Student in an Organized Health Care Education/Training Program | DX: Z47.1 Aftercare following joint replacement surgery (principal); Z96.611 Presence of right artificial shoulder joint; M75.101 Unspecified rotator cuff tear or rupture of right shoulder, not specified as traumatic; M12.811 Other specific arthropathies, not elsewhere classified, right shoulder; S46.211D Strain of muscle, fascia and tendon of other parts of biceps, right arm, subsequent encounter; X58.XXXD Exposure to other specified factors, subsequent encounter | CPT/HCPCS: 99024 ==

== ENCOUNTER 2025-03-09 11:10 | Outpatient (CLI) | payer MEDICARE, SELFPAY ==
--- NOTE | 2025-03-09 09:46 | DI.RAD_ITS ---
Exam(s) XR SHOULDER RT COMPLETE 2+V EXAM: XR SHOULDER RT COMPLETE 2+V CLINICAL HISTORY: F/U RIGHT RTSA. TECHNIQUE: 2D digital imaging was performed. Two images were obtained. Grashey and Y views were obtained. COMPARISON: CR XR SHOULDER RT COMPLETE 2+V from 10/07/2024 CR XR SHOULDER RT COMPLETE 2+V from 11/17/2024 FINDINGS: BONES: There are stable post operative changes of a right reverse total shoulder arthroplasty present. No fracture or dislocation. JOINTS: The orthopedic hardware is in good position. No evidence of hardware loosening. There is no change in alignment of the acromioclavicular joint. SOFT TISSUE: Normal. IMPRESSION: Stable right reverse total shoulder arthroplasty. DATA REPOSITORY: RADIATION DOSE DELIVERED:
== END 2025-03-09 11:11 | disposition home or self-care (01) ==
LOC: DIORS 11:11
PROVIDERS: PCP Family Medicine; Referring Provider Family Medicine; Visit Provider Student in an Organized Health Care Education/Training Program
DX: S46.211D Strain of muscle, fascia and tendon of other parts of biceps, right arm, subsequent encounter (principal); X58.XXXD Exposure to other specified factors, subsequent encounter; M75.101 Unspecified rotator cuff tear or rupture of right shoulder, not specified as traumatic; M12.811 Other specific arthropathies, not elsewhere classified, right shoulder
CPT/HCPCS: 99213; 73030